=== PATIENT | male | born 1935 | race Caucasian/White ===

== ENCOUNTER 2023-11-28 11:05 | Inpatient (IN) | payer OTHER, SELFPAY ==
[2023-11-25 23:27] VITALS: BP 128/76
--- NOTE | 2023-11-25 23:53 | ED.GENMED ---
Addendum entered and electronically signed by Tarun Edwards DO 11/26/23 05:03:
30 minutes critical care time
Addendum entered and electronically signed by Tarun Edwards DO 11/26/23 03:02:
called to room urgently by RN
pt with increased HR, decreased sats, ? seizure (eyes rolled back)
to CT, ekg, abg
hospitalist on board
Original Note:
History of Present Illness
General
Chief Complaint: Fever
Source: patient and family
Time Seen by Provider: 11/25/23 23:45
History of Present Illness
History of Present Illness:
88-year-old male with past medical history of CVA, hypertension, hyperlipidemia presenting to the emergency department with family reporting that this evening patient developed a fever with a Tmax of 101 (was given Tylenol prior to arrival)
accompanied with some sinus congestion, cough, generalized weakness, left knee pain, small blood-tinged urine and generally feeling unwell. No known sick contacts, recent travel or recent antibiotics. Patient states that his biggest concern is the
leg weakness and feeling unsteady while trying to ambulate. Family states that the weakness is a little bit more pronounced and has been going on a little longer than the rest of the infectious symptoms. Patient is otherwise denying any abdominal
pain, nausea, vomiting, bowel changes, chest pain or shortness of breath or any other concerns presently.
Past History
Past History
ED Past Medical History: CVA, HTN and Hypercholesterolemia
ED Past Surgical History: Appendectomy and Other (Hernia repair)
Social History
Tobacco: Non-smoker
Alcohol: None
Drug: None
Personal:
Living: with family
Review of Systems
Review of Systems
All Other Systems: ROS reviewed and negative except as documented in HPI and ROS
Phy Exam
Physical Exam
Physical Exam:
GENERAL: Alert , in no apparent distress
EYE: clear conjunctiva b/l
HEAD: NCAT
ENT: o/p clr, mmm.
CARDIAC: Tachycardic rate and rhythm, irregularly irregular
LUNGS: Clear breath sounds bilaterally, no acute respiratory distress, no wheezes/rales/rhonchi
ABDOMEN: Soft, without focal tenderness, no r/g, no cvat
NEUROLOGICAL: Alert and oriented
SKIN: Warm and dry, skin intact.
MUSCULOSKELETAL: No edema, well perfused.
PSYCH: Normal and appropriate interaction.
Scores
Heart Failure Risk
Heart Failure Risk Score: Not Applicable
Heart Score for Chest Pain Patients
STEMI patient?: Not applicable
Withdrawal Assessment of Alcohol
Withdrawal Assessment Completed?: Not applicable
Course
Orders/Labs/Results
Orders:
Orders
11/25/23 23:52
Electrocardiogram (*1) Urgent
Reason for Study: Tachycardia
EKG- Treatment ONCE
Complete Blood Count/With Diff Urgent
Comprehensive Metabolic Panel Urgent
Lactic Acid Q4H
Comment: CANCEL 2nd LACTIC ACID IF 1st LACTIC ACID IS LESS THAN 2
Magnesium Urgent
TSH Urgent
Urinalysis Reflex To Culture Urgent
0.9% Sodium Chloride 1000 ml [Nss] 1,000 ml IV BOLUS
11/26/23 00:00
CR Chest Portable - 1 View Urgent
Reason For Exam: fever, cough
Reason Study Needs to be Portable: Patient Unstable
11/26/23 00:11
COVID-19 Antigen Urgent
Source: Nasal Swab
11/26/23 00:27
0.9% Sodium Chloride 1000 ml [Nss] 1,600 ml IV NOW STA
11/26/23 00:53
Blood Culture Urgent
TIFFANY Source: Blood/Venous
Specimen Description:
Piperacillin/Tazo 3.375 Gram [Zosyn] 3.375 gram in 50 ml IV NOW
Vancomycin [Vancocin] 2,000 mg 0.9% Sodium Chloride 500 ml [Nss] 500 ml IV NOW
11/26/23 01:23
Blood Culture Routine
TIFFANY Source: Blood/Venous
Specimen Description:
11/26/23 03:52
Lactic Acid Q4H
Comment: CANCEL 2nd LACTIC ACID IF 1st LACTIC ACID IS LESS THAN 2
Abnormal Lab Results
11/26/23
00:02
WBC 12.1 H 10^3/uL
(4.8-10.8)
RBC 4.01 L 10^6/uL
(4.70-6.10)
Hgb 12.6 L g/dL
(13.0-18.0)
Hct 37.5 L %
(39.0-52.0)
MCH 31.4 H pg
(27.0-31.0)
Abs Immat Gran (auto) 0.1 H 10^3/uL
(0-0.05)
Absolute Neuts (auto) 11.5 H 10^3/uL
(1.4-6.5)
Absolute Lymphs (auto) 0.3 L 10^3/uL
(1.2-3.4)
Immature Gran % 0.6 H %
(0-0.5)
Neutrophils % 95.2 H %
(42.2-75.2)
Lymphocytes % 2.6 L %
(20.5-51.1)
Monocytes % 1.2 L %
(1.7-9.3)
BUN 22 H mg/dl
(9-20)
Glucose 110 H mg/dl
(70-99)
Lactic Acid 3.0 H mmol/L
(0.7-2.0)
11/26/23 00:02
11/26/23 00:02
Vital Signs
Initial and Last Documented VS:
Initial Vital Signs
Temp Pulse Resp BP Pulse Ox
98.7 F 66 18 128/76 96
11/25/23 23:27 11/25/23 23:27 11/25/23 23:27 11/25/23 23:27 11/25/23 23:27
Last Documented Vital Signs
Temp Pulse Resp BP Pulse Ox
98.7 F 108 28 111/67 96
11/25/23 23:27 11/26/23 00:45 11/26/23 00:45 11/26/23 00:15 11/26/23 00:45
MDM/Problems Addressed
Differential Diagnosis Includes:
Viral syndrome, pneumonia, UTI, sepsis
MDM/Problems Addressed:
88-year-old male presenting emergency department for evaluation of a fever this evening combined with URI-like symptoms, hematuria and generalized weakness. Patient's exam reveals he is tachycardic with an irregular rhythm. No history of atrial
fibrillation. EKG being done. He is otherwise presently hemodynamically stable with normal blood pressure and he is afebrile. Will check labs, lactic acid, chest x-ray, urinalysis. Reassessment following. Given age and presenting symptoms I do
suspect patient will be admitted. Reassessment following
*Radiology
Radiology exam reviewed: preliminary read by ED provider (no consolidations/effusions)
*Pulse Oximetry
Patient hypoxic: no
*EKG
Interpreted by ED Provider?: Yes
Comparison EKG: no comparison EKG present
Heart Rate: 113
Rate: tachycardiac
Rhythm: sinus and PVC's
Isle: left axis deviation
*Commissioner Of Officials Interpretation
Rate: tachycardiac
Rhythm: sinus
*Critical Care Note
Total Time (30-74mins, 75-104mins- exclusive of procedures): Not Applicable
Patient Management
Discussion with other providers: Hospitalist
Escalation/DeEscalation of care consider admission/obs:
Patient CXR without acute infiltrate/effusions. WBC >12, lactic 3.0. Concern for sepsis. Additional 1600mL NSS ordered. broad spectrum abx coverage ordered. Unclear source for infection at this time. Plan for admit. Hospitalist aware and accepts for
continued evaluation and treatment.
ED Attending Note
-
Portions of this chart may have been created with voice recognition software.� Occasional wrong word or��sound alike� substitutions may have occurred due to the inherent limitations of voice recognition software.
Discharge Plan
Departure
Patient Disposition: Admit
Date of Disposition: 11/26/23
Time of Disposition: 01:01
Presentation/result/management discussed w/ accepting MD/DO: Hospitalist
Discharge Problem:
Sepsis
Prescriptions:
No Action
atorvastatin 20 mg Tablet
20 mg PO DAILY
tamsulosin 0.4 mg Capsule
0.4 mg PO HS
aspirin 81 mg Tablet
81 mg PO DAILY
metoprolol succinate 25 mg Tablet Extended Release 24 Hr
25 mg PO HS
empagliflozin 10 mg Tablet
10 mg PO DAILY
Co-Enzyme Q-10
100 mg PO DAILY
Referrals:
Robson Herbert MD [Family Provider] -
Interventions
Interventions:
*Risk Screen - Suicide Last Done: 11/26/23 00:06
*General Assessment Last Done: 11/26/23 00:06
*Neglect/Abuse Screening Last Done: 11/26/23 00:06
ED- Fall Risk Assessment Last Done: 11/26/23 00:18
*ED COVID-19 Vaccine History Last Done: 11/26/23 00:06
ED- Neurological Assessment Last Done: 11/26/23 00:18
ED-Skin Assessment Last Done: 11/26/23 00:18
Discharge Date and Time
Print Language: TAJIK
[2023-11-26] VITALS (25 sets, daily range): BP systolic 90–160; BP diastolic 44–80; BMI 27.1; BMI 26.9
[2023-11-26] MEDS: NSS 1000 IV ×3 (00:10→13:28)
[2023-11-26 00:14] LABS: % Basophils 0.3 % (0-2); % Eosinophils 0.1 % (0-6); % Immature Granulocytes 0.6 % (0-0.5); % Lymphocytes 2.6 % (20.5-51.1); % Monocytes 1.2 % (1.7-9.3); % Neutrophils 95.2 % (42.2-75.2); Absolute Immature Granulocytes 0.1 10^3/uL (0-0.05); Absolute Lymphocytes 0.3 10^3/uL (1.2-3.4); Absolute Monocytes 0.1 10^3/uL (0.1-0.6); Absolute Neutrophils 11.5 10^3/uL (1.4-6.5); Hematocrit 37.5 % (39.0-52.0); Hemoglobin 12.6 g/dL (13.0-18.0); Mean Corp Hgb Conc. 33.6 g/dL (33.0-37.0); Mean Corpuscular Hgb 31.4 pg (27.0-31.0); Mean Corpuscular Volume 93.5 fL (80.0-94.0); Mean Platelet Volume 10.2 fL (7.4-10.4); Nucleated Red Blood Cells % 0 % (-); Platelet Count 148 10^3/uL (130-400); Red Blood Cell Count 4.01 10^6/uL (4.70-6.10); Red Cell Dist. Width 13.8 % (11.5-14.5); White Blood Cell Count 12.1 10^3/uL (4.8-10.8)
[2023-11-26 00:26] LABS: ALT (SGPT) 12 U/L (0-50); AST (SGOT) 31 U/L (17-59); Albumin 4.3 g/dl (3.5-5.0); Alkaline Phosphatase 118 U/L (38-126); Blood Urea Nitrogen 22 mg/dl (9-20); Calcium 9.3 mg/dl (8.4-10.2); Carbon Dioxide 22 mmol/L (22-30); Chloride 103 mmol/L (98-107); Estimated Creatinine Clearance 42 ml/min; Glucose 110 mg/dl (70-99); Magnesium 1.7 mg/dl (1.6-2.3); Potassium 3.9 mmol/L (3.5-5.1); Sodium 138 mmol/L (135-145); Total Protein 7.4 g/dl (6.3-8.2); eGFR 52.84
[2023-11-26 00:32] LABS: COVID-19 Antigen Negative (Negative)
[2023-11-26] MEDS: NSS 1600 ML IV (00:42)
[2023-11-26 00:55] LABS: TSH 1.75 uIU/ml (0.47-4.68)
--- NOTE | 2023-11-26 01:17 | HPS.HSE ---
Addendum entered and electronically signed by Bud Jimenez MD 11/26/23 03:17:
Addendum:
RESIDENTIAL ENERGY AUDITOR witnessed abrupt onset of AMS :
- suddenly HR shot up to 130s become unresponsive, both eyes rolled up then b/l shakes, foaming fromthe mouth
- POx dropped to 70s
- HR 130s BP 150/80
- Rectal T 102
- Agonal breathing Not cyanotoc
- b/l symmetric tone in extremities
Plan
- switch to HFO2 in place of NRM
- stat ABG
- stat EKG
- stat HCT
- change level of care to ICU following ER evaluation for AMS
- cont IV ABx
Original Note:
Family Physician
-
Family Physician: Robson Herbert
Chief Complaint
-
Fever at home
History of Present Illness
HPI
88M No prior admission to HX DMT2, HLD, CVA, BPH BiB famiy for evalaution of fver up to 101 at home
Acute febrile illness
- some sinus congestion, cough
- generalized weakness and general debility
- small blood-tinged urine
- denied known sick contacts, recent travel or recent antibiotics
ROS
Denied abdominal pain, nausea, vomiting, bowel changes, chest pain or shortness of breath
Medical History
Past Medical History
Past Medical History: Reports CVA, HTN, Hypercholesterolemia and NIDDM
Past Surgical History: Reports Other
Social History
Tobacco: Non-smoker
Alcohol: None
Living: With Family
Family History
Family History: Not pertinent
Allergies / Home Medications
Allergies reflects when Allergies were last updated in [facility].
Home Medications with original date entered in [facility]
Allergy/Medication List:
Allergies
Allergy/AdvReac Type Severity Reaction Status Date / Time
lisinopril Allergy Swelling Verified 11/25/23 23:26
Home Medications
Co-Enzyme Q-10 100 mg PO DAILY 11/26/23
aspirin 81 mg tablet 81 mg PO DAILY 11/26/23
atorvastatin 20 mg tablet 20 mg PO DAILY 11/26/23
empagliflozin 10 mg tablet 10 mg PO DAILY 11/26/23
metoprolol succinate 25 mg tablet,extended release 24 hr 25 mg PO HS 11/26/23
tamsulosin 0.4 mg capsule 0.4 mg PO HS 11/26/23
Review of Systems
-
Constitutional: Reports Fever; Denies Chills
EENT: Reports No Symptoms
Respiratory: Reports No Symptoms
Cardiac: Reports No Symptoms
Abdomen/GI: Reports No Symptoms
: Reports No Symptoms
Musculoskeletal: Reports No Symptoms
Skin: Reports No Symptoms
Neurological: Reports Weakness
Endocrine: Reports No Symptoms
Hematologic/Lymphatic: Reports No Symptoms
Psych: Reports No Symptoms
Physical Exam
Vital Signs
Vital Signs
Temp Pulse Resp BP Pulse Ox
98.7 F 108 28 111/67 96
11/25/23 23:27 11/26/23 00:45 11/26/23 00:45 11/26/23 00:15 11/26/23 00:45
Physical Exam
General: No Apparent Distress, Comfortable and Conversant; No Respiratory Distress
HEENT: NormoCephalic, Anicteric and Moist mucous membranes
Respiratory: Clear; No Wheezes or Rales
Cardiac: S1/S2 and Regular Rhythm
GI: Soft, Non Tender, Non Distended and Normal Bowel Sounds
Genito-urinary: Deferred by me
Musculoskeletal: No Edema
Skin: Warm and Dry
Neuro: AO x 3
Psych: Calm
Laboratory Results
-
11/26/23 00:02
11/26/23 00:02
Laboratory Results
Lactic Acid 3.0 mmol/L (0.7-2.0) H 11/26/23 00:02
Total Bilirubin 1.0 mg/dl (0.2-1.3) 11/26/23 00:02
AST 31 U/L (17-59) 11/26/23 00:02
ALT 12 U/L (0-50) 11/26/23 00:02
Alkaline Phosphatase 118 U/L (38-126) 11/26/23 00:02
Data Reviewed
-
Medical Tests (Nuc Med, Echo, EKG etc): Report Reviewed by me
Lab Data: Labs Reviewed by me
Old Records: Reviewed
Impression/Plan
-
Reviewed VS: Tc 98.7, T 101(BUNDLE CLERK ) HR 108 BP110/67 RR28 POx96
Data
WCC 12s
Hgb 12.6
BUN 22
Cr 1.3
eGFR 52
nl LFTs
Pending LA
Pending UA
NEG Covid
BCx time 2 sent
CXR my view: no obvious PNA
ASSESSMENT & PLAN
SIRS clinical picture
Unclear origin for SIRS DDX: UTI , acute viral syndrome
Asso. tachycardia
- Pending LA, PCT
- BCx sent
- Empiric ABX; cont Vanco and Zosyn for now
DMT2
- cont Empagliflozin
- add ISS low
HLD
HX CVA
- cont. Atorvastatin
BPH
- cont Tamsulosin
DVT Px: LMWH
Code: Full code
Obs TLM
[2023-11-26] MEDS: ZOSYN 50 IV ×4 (01:22→20:11)
[2023-11-26 01:49] LABS: Urine Albumin 1+ (Neg - Trace); Urine Bilirubin Negative (Negative); Urine Character Clear (Clear); Urine Color Yellow; Urine Glucose 3+ (Negative); Urine Ketone Negative (Negative); Urine Leukocyte 2+ (Negative); Urine Nitrite Negative (Negative); Urine Occult Blood 4+ (Negative); Urine Specific Gravity 1.005 (<1.030); Urine Urobilinogen Negative (Neg - 1+)
[2023-11-26 01:51] LABS: NT-proBNP 2630 pg/ml
[2023-11-26] MEDS: VANCOCIN 540 MG IV (02:02)
[2023-11-26 02:04] LABS: Procalcitonin 18.01 ng/ml (0.0-0.25)
[2023-11-26 02:05] LABS: Urine Bacteria Few (Negative); Urine Red Blood Cell 0-2 /HPF (0-2); Urine White Cell 30-40 /HPF (0-5)
[2023-11-26] MEDS: OFIRMEV 100 IV (03:05)
--- NOTE | 2023-11-26 03:12 | EDRN ---
0305 Pts belongings being put together and placed on stretcher. Upon moving IV pump from pole to stretcher, pts HR increased to 135, pts eyes rolled to back of head, pt became rigorous and O2 sat dropped to 50s% and pt began seizing. Agonal
breathing noted post seizure, pt ortiz in color. Help called, nonrebreather placed on pt at 15L, respiratory called and doctor at bedside. Temp increased to 101.9 rectal, IV Ofirmev ordered and given per order by Dr. Jimenez. Pt placed on high flow per
resp, O2 sat 100% RR 22. Skin pink in color. +pulses. BP 129/64.
[2023-11-26 03:46] LABS: B.E. -10.5 mmol/L; PCO2 30 mmHg (35-48); PO2 275 mmHg (83-108)
[2023-11-26 03:48] LABS: O2 Therapy NRB
[2023-11-26 03:49] LABS: HCO3 14.8 mmol/L (21-28)
--- NOTE | 2023-11-26 03:55 | W.PN.UPDATE ---
Update Note
Progress Note Update
ADDENDUM:
COMMUNICATIONS INTERN witnessed abrupt onset of AMS : Gradually improved wakefulness
- suddenly HR shot up to 130s become unresponsive, both eyes rolled up then b/l shakes, foaming from the mouth
- POx dropped to 70s
- HR 130s BP 150/80
- Rectal T 102
- Agonal breathing Not cyanotic
- b/l symmetric tone in extremities
Laboratory Tests
11/26/23
03:38
pH 7.30 L
pCO2 30 L
pO2 275 H
HCO3 14.8 L*
11/26/23
01:16
Procalcitonin 18.01 H*
[facility] HCT : no acute bleeding
Imp:
AMS with gradual wakefulness : Episode of partial complex Sz associated with hi grade fever
Significant PCT suspected sepsis
ABG c/w primary metabolic acidosis with compensated Resp alkalosis ? due to Sz
No acute cerebral hemorrhage
Plan
- switch to HFO2 in palace of NRM
- cont IVF
- cont. Vanco and Zosyn
- change level of care to ICU to close monitoring following ER evaluation for AMS
- Neuro consult
- ICU consult
[2023-11-26 04:10] LABS: Lactic Acid 3.4 mmol/L (0.7-2.0)
--- NOTE | 2023-11-26 04:32 | W.PN.UPDATE ---
Update Note
Progress Note Update
CT Scan head: No hemorrhage, hydrocephalus, or herniation. Sequele of chronic microvascular disease with old right frontal lobe infarct and old cerebellar infarcts.
--- NOTE | 2023-11-26 05:30 | PTCARENOTE ---
Received patient from ED nurse. Pt. awake, alert, and oriented. Currently denies pain/discomfort. Febrile, temperature 100.2. Pt. heart rhythm sinus. Blood pressure normotensive. Currently on HFNC 60% 55 lpm. Lungs sound diminished. PO diet ordered.
Umbilical hernia noted. Per previous RN, pt. incontinent of urine. Condom catheter placed. Skin appears intact. Discussed plan of care. Vital signs stable at this time.
[2023-11-26 05:40] LABS: INR 1.34; PT 16.4 Sec (11.4-14.6)
[2023-11-26 05:41] LABS: APTT 32.5 Sec (23.4-35.0)
[2023-11-26 06:03] LABS: Blood Urea Nitrogen 20 mg/dl (9-20); Calcium 7.7 mg/dl (8.4-10.2); Carbon Dioxide 17 mmol/L (22-30); Chloride 107 mmol/L (98-107); Estimated Creatinine Clearance 51 ml/min; Glucose 106 mg/dl (70-99); Magnesium 1.6 mg/dl (1.6-2.3); Potassium 4.1 mmol/L (3.5-5.1); Sodium 134 mmol/L (135-145); eGFR > 60.00
[2023-11-26 06:08] LABS: Troponin I 0.994 ng/ml
[2023-11-26 08:24] LABS: Glucose - Point of Care 103 mg/dl (70-99)
[2023-11-26] MEDS: JARDIANCE 10 MG PO (08:25)
[2023-11-26] MEDS: ASPIR LOW (ENTERIC COATED) 81 MG PO (08:25)
[2023-11-26] MEDS: LIPITOR 20 MG PO (08:25)
--- NOTE | 2023-11-26 08:52 | CON.NEURO4 ---
Consultation - Neurology 4
-
CONSULTING PHYSICIAN: Dr. Wilkins
REFERRING PHYSICIAN: ICU
DICTATED BY: Claudette
DATE/TIME OF REQUEST: 11/26/23 at 8am
DATE/TIME OF CONSULTATION: 11/26/23 at 930
Reason for Consultation: seizure
History of Present Illness:
88 year-old male with a history of stroke, htn, and hld admitted yesterday evening with fever, sinus congestion, cough, generalized weakness, left knee pain and feeling unwell. He felt unsteady with trying to walk and felt his knees were weak.
Family stated that his weakness has worsened a bit over time and predates his infectious symptoms. No clear prior history of seizure. HCT showed: 'Old infarcts within the right frontoparietal lobe and right cerebellar hemisphere. No suspected acute
infarct appreciated.' At 355 AM an event was documented concerning for seizure activity described as 'witnessed abrupt onset of AMS, suddenly HR shot up to 130s, become unresponsive, both eyes rolled up then b/l shakes, foaming from the mouth, POx
dropped to 70s, HR 130s, BP 150/80, Rectal T 102, Agonal breathing Not cyanotic, b/l symmetric tone in extremities.' He was transferred to ICU after. He is on vancomycin and Zosyn. He has had no further events.
The patient does not recall the event. States that he had 'a stroke many years ago that was silent.' Confirms that he has never had a seizure. States that he was admitted at [facility] about 6 mos for stroke workup which was negative. Had some BLE
weakness with that event too.
Seizure risk factors: all negative beyond old stroke--no family history of seizure. No personal h/o [employer]ILTING [employer] infection, head trauma, febrile seizure; born full term, no complications or developmental delay
Past History
Past Medical History: CVA, HTN and Hypercholesterolemia
Past Surgical History: Appendectomy, Hernia repair
Social History
Tobacco: Non-smoker
Alcohol: None
Drugs: None
Lives with family
Allergies
lisinopril Allergy (Verified 11/25/23 23:26)
Swelling
Home Medications
�Medication �Instructions �Recorded
Co-Enzyme Q-10 100 mg PO DAILY 11/26/23
aspirin 81 mg tablet 81 mg PO DAILY 11/26/23
atorvastatin 20 mg tablet 20 mg PO DAILY 11/26/23
empagliflozin 10 mg tablet 10 mg PO DAILY 11/26/23
metoprolol succinate 25 mg 25 mg PO HS 11/26/23
tablet,extended release 24 hr
tamsulosin 0.4 mg capsule 0.4 mg PO HS 11/26/23
Review of Symptoms:
Patient denies any fever, headache, chest pain, shortness of breath, GI or symptoms.
�Per the HPI.�All systems are reviewed negative except above.
Vital Signs
Temp Pulse Resp BP Pulse Ox
98.0 F 65 16 119/57 99
11/26/23 08:05 11/26/23 06:15 11/26/23 06:15 11/26/23 06:13 11/26/23 07:56
Lab Results
11/26/23 00:02
11/26/23 05:19
PT 16.4 Sec (11.4-14.6) H 11/26/23 05:19
INR 1.34 11/26/23 05:19
APTT 32.5 Sec (23.4-35.0) 11/26/23 05:19
Sodium 134 mmol/L (135-145) L 11/26/23 05:19
Potassium 4.1 mmol/L (3.5-5.1) 11/26/23 05:19
BUN 20 mg/dl (9-20) 11/26/23 05:19
Glucose 106 mg/dl (70-99) H 11/26/23 05:19
Calcium 7.7 mg/dl (8.4-10.2) L D 11/26/23 05:19
Phosphorus Cancelled 11/26/23 05:10
Pxg-F-Kvzxyrtlfvh Pept 2630 pg/ml 11/26/23 01:13
COVID negative
Neurologic Examination:
The patient is awake, alert and oriented x 3. He is able to follow commands and answer questions appropriately. There is no aphasia or dysarthria. On cranial nerve assessment, pupils are 3 mm bilateral, round and reactive to light and
accommodation. Visual [place] are full. Extraocular movements are intact. Facial sensations are intact and bilaterally symmetrical, there is no facial asymmetry. Hearing is intact bilaterally to normal conversation volume. Tongue palate and uvula
are midline. Sternocleidomastoid strengths are full bilaterally. Motor strengths are 5/5 bilateral upper extremities on medical research [place] scale and at least 5-/5 in BLE with varying degrees of effort on repeated exams. There is no drift or
involuntary movement noted. Deep tendon reflexes are 1+ bilateral upper and lower extremities and Babinski is absent bilaterally. Sensations of touch, temperature are intact and bilaterally symmetrical. There was no extinction noted on double
simultaneous stimulation. Coordination is intact by finger to nose bilaterally.
Neuro Imaging:
HCT:
'1. No acute intracranial abnormalities appreciated.
2. Mild atrophy and small vessel ischemic change.
3. Old infarcts within the right frontoparietal lobe and right cerebellar hemisphere. No suspected acute infarct appreciated.'
Impression:
BROCK ZAVALA is a 88 year old M with mild BLE weakness, fever, and an episode of altered mental status concerning for possible seizure; differential includes provoked seizure due to infection vs. toxic encephalopathy.
Recommendations:
1. stat EEG--will only start an antiseizure medication if EEG shows epileptiform changes
2. MRI brain w/wo contrast when able
3. seizure precautions, neurochecks
4. continue treatment for infection
Discussed patient care with: Dr. Mandujano, nursing, patient
Critical care time 55 mins
--- NOTE | 2023-11-26 09:08 | CON.INTV ---
Consultation
Consultation Request
Date/Time Consultation Requested: 11/26/2023
Date/Time Consultation Performed: 11/26/2023
Requesting Provider: Dr. Jimenez
Performing Provider: Dr. Dominic Mandujano
Reason for Consultation: Abrupt change in mental status
Medical History
-
History of Present Illness:
88-year-old man with past medical history significant for CVA, hypertension, hyperlipidemia presented to the emergency room with fever up to 101 per his report, associated with sinus congestion, cough, generalized weakness and left knee pain,
patient feels sick on arrival. Denies any hemoptysis, purulent sputum production. No recent sick contacts or traveling.
He was more concerned about his lower extremity weakness and unsteady gait.
Denies any nausea vomiting or diarrhea.
While in the emergency room patient developed acute onset of change in mental status, tachycardic to the 130, unresponsive, both eyes rolled up then with some bilateral shaking and foaming in the mouth. Sats dropped to 70%. Patient was
hypertensive. Temperature at that time was 102 �F.
He was transferred to the critical care unit for observation.
This morning patient is back to baseline.
Denies any headache or blurry vision.
Denies any nausea or vomiting.
He is on low rate supplemental oxygen per
Past Medical History
Past Medical History: Other (See assessment and plan section)
Social History
Tobacco: Non-smoker
Alcohol: None
Drug: None
Personal:
Living: With Family
Family History
Family History: Reviewed & Not Pertinent
Allergies / Home Medications
Allergies
Allergy/AdvReac Type Severity Reaction Status Date / Time
lisinopril Allergy Swelling Verified 11/25/23 23:26
Home Medications
�Medication �Instructions �Recorded �Confirmed �Last Taken �Type
Co-Enzyme Q-10 100 mg PO DAILY 11/26/23 11/26/23 Unknown History
aspirin 81 mg tablet 81 mg PO DAILY 11/26/23 11/26/23 Unknown History
atorvastatin 20 mg tablet 20 mg PO DAILY 11/26/23 11/26/23 Unknown History
empagliflozin 10 mg tablet 10 mg PO DAILY 11/26/23 11/26/23 Unknown History
metoprolol succinate 25 mg 25 mg PO 11/26/23 11/26/23 Unknown History
tablet,extended release 24 hr
tamsulosin 0.4 mg capsule 0.4 mg PO 11/26/23 11/26/23 Unknown History
Review of Systems
-
History Source: Patient
All other systems: Negative unless noted
Vitals / Labs / Diagnostic Testing
Vital Signs
Temp Pulse Resp BP Pulse Ox
98.0 F 65 16 119/57 99
11/26/23 08:05 11/26/23 06:15 11/26/23 06:15 11/26/23 06:13 11/26/23 09:03
Lab Data
11/26/23 00:02
11/26/23 05:19
Laboratory Results
11/26/23 11/26/23 11/26/23
03:16 03:26 03:38
PT
INR
APTT
pH Cancelled Cancelled 7.30 L
pCO2 Cancelled Cancelled 30 L
pO2 Cancelled Cancelled 275 H
HCO3 Cancelled Cancelled 14.8 L*
O2 Delivery Level Cancelled Cancelled Nrb
11/26/23
05:19
PT 16.4 H
INR 1.34
APTT 32.5
pH
pCO2
pO2
HCO3
O2 Delivery Level
Diagnostic Testing:
Physical Exam
-
HEENT: Normocephalic
Cardiovascular: S1/S2
Respiratory: Clear
GI: Soft and Non Tender
Neurology: Awake and Alert
Skin: Warm
General: Comfortable
Assessment
-
Abrupt onset change in mental status-possible febrile seizure.
Head CT 11/26/2023: Reviewed, showed no acute intracranial abnormalities. Mild atrophy. Old infarcts in the right frontoparietal lobe and right cerebellar hemisphere.
Mild hypoxemic respiratory insufficiency on low rate supplemental oxygen
Chest x-ray 11/26/2023: Showed no acute pulmonary process
SRIS - Sepsis
Likely UTI
Neg Covid
Generalized weakness
Conditions present prior admission:
Prior CVA
Type 2 diabetes
Hyperlipidemia
BPH
-
Assessment and plan:
Clinically improved since yesterday
Mental status back to baseline
Possible febrile seizure.
CT of the head negative for
No neurological deficit on exam
-
Suspect above triggered by sepsis/fevers-possible UTI based on abnormal urinalysis.
Increased procalcitonin.
-
Urine culture and blood culture will send
Chest x-ray without pneumonia
Continue antibiotics
Monitor for fevers
Consider DC Graham
-
Hypoxemia: Perhaps some degree of aspiration pneumonitis post INTERNATIONAL TAX MANAGER event.
Wean off. Currently on high flow 40%. Pulse ox 97%.
Incentive spirometer
Lung exam relatively clear.
No significant phlegm production.
Doubt any acute pulmonary process
-
Metabolic acidosis: Likely due to normal saline resuscitation as well as increased lactic acid
Encourage oral intake
Trend lactic acid
Taper off IV fluids. Currently on normal saline 80 cc an hour.
Repeat tomorrow
-
Mildly increased troponin-trend.
EKG: Sinus tachycardia. Possible septal infarct age undetermined. ST-T wave abnormality consider lateral ischemia.
Chest pain-free.
-
Monitor blood sugars: Subcu insulin as needed.
Restart outpatient medications
-
DVT prophylaxis Lovenox subcu.
-
Physical therapy/Occupational Therapy.
-
Will transfer to telemetry.
If unable to wean off oxygen, pulmonary will continue to follow briefly.
--- NOTE | 2023-11-26 09:20 | PHA.VAN.IN ---
Assessment
- Assessment
Renal Function: Unknown baseline
Maximum Temperature: 101.9
Minimum Temperature: 98
Concomitant Antimicrobials: Piperacillin-tazobactam
AUC Dosing Plan
- Dosing Variables
Dosing Weight (kg): 90
Dosing CrCl (ml/min): 51
Vd coefficient (L/kg): 0.7
- Empiric Dosing
Initial / Loading Dose: Vanc 2000mg given 11/25 at 0134
Maintenance Regimen: Vanc 1500mg IV q24h
Estimated AUC (mcg*h/mL): 527
Estimated Peak (mcg*h/mL): 35.3
Estimated Trough (mcg/ml): 12.3
Estimated Half Life (H): 14.8
- Monitoring
No levels ordered at this time: Consider levels after 11/27 0600 dose
Pharmacokinetics Vancomycin I
- -
Patient Age: 88
Patient Sex: Male
Vancomycin Day #: 1
Indication: Bacteremia
Requesting Provider: Barbara
Height / Weight:
Height 6 ft
Actual Weight 89.9 kg
IBW in k.6
Adjusted BW in k.5
- Vital Signs / Lab Results
Temp Pulse Resp BP Pulse Ox
98.0 F 65 16 119/57 99
11/26/23 08:05 11/26/23 06:15 11/26/23 06:15 11/26/23 06:13 11/26/23 09:03
Lab Results - Hematology
11/26/23
00:02
WBC 12.1 H
Lab Results - Chemistry
11/26/23 11/26/23
00:02 05:19
BUN 22 H 20
Creatinine 1.3 1.1
Estimated Creat Clear 42 51
Albumin 4.3
11/26/23 11/26/23
00:02 03:50
Lactic Acid 3.0 H 3.4 H
Lab Results - Urine
11/26/23
01:39
Urine Nitrite (Reflex) Negative
Leukocyte Esterase Rfl 2+ A
Urine WBC (Reflex) 30-40 A
Ur Squamous Epith Cells 3-5
Urine Bacteria (Reflex) Few A
--- NOTE | 2023-11-26 09:30 | PTCARENOTE ---
Received pt resting in bed; pt AAOx3, POX 96% on high flow, pt denies SOB, NAD. Pt incontinent of urine, condom catheter detached. Pt washed, gown changed, new condom catheter placed, draining dark yellow urine with sediment. Remainder of assessment
as documented. D/w RT, pt weaned from high flow to 4L O2 NC POX 94%. Pt mildly SOTO, but POX remains appropriate at 92-94%.
[2023-11-26 10:20] LABS: Glycohemoglobin (HgbA1c) 5.8 % (4.0-5.6)
[2023-11-26 11:13] LABS: Lactic Acid 2.2 mmol/L (0.7-2.0)
--- NOTE | 2023-11-26 11:33 | PTCARENOTE ---
"Orders obtained to downgrade to tele. MRI requesting pt for MRI of the brain. Pt's ring and necklace removed for testing, given to pt's [id number] at the bedside. Prior to pt transport, pt febrile with a temp of 101.4. Covering hospitalist "Ava"notified, orders for PRN Tylenol received after pt transport for testing. Report called to Anna pt to be transferred to [facility] after MRI procedure. Belongings and pt family transported to pt's new floor by PCT. "
--- NOTE | 2023-11-26 12:19 | PTCARENOTE ---
Repeat troponin resulted with pt down in MRI; covering hospitalist notified of increase in lab value (0.994 > 3.420).
[2023-11-26 12:45] LABS: Lactic Acid 1.6 mmol/L (0.7-2.0)
--- NOTE | 2023-11-26 13:34 | EEG.RPT ---
Electroencephalogram Report
Recording
Date of EE11/26/23
Type of EEG: Routine
Length of EEG recordin mins
Done with Video Recording: Yes
Patient Status: Inpatient
Recording Conditions: Awake, Drowsy and Asleep
Hyperventilation Performed: No
Photic Stimulation Performed: Yes
Report
METHODS
A 21 channel digitized electroencephalogram was performed at [facility]. The 10/20 international system of electrode placement was used. In addition to EEG, the patient was monitored for EKG. The duration of the recording was 22 minutes.
BACKGROUND
During the awake state, with the eyes closed, the background was diffusely slow to an average of 5-6Hz. Occasional diffuse triphasic waves were noted.
PHOTIC STIMULATION
Photic stimulation using a step-stearns increase in photic frequency varying from 1-31 Hertz resulted in no driving responses but no appearance of abnormal activity.
CLINICAL EVENTS
None
INTERPRETATION AND CLINICAL CORRELATION
This EEG is abnormal due to diffuse slowing of the background to 5-6Hz frequencies with occasional diffuse triphasics, the latter of which can be seen in metabolic encephalopathies. The study is consistent with moderate diffuse cerebral
dysfunction, nonspecific in etiology. No seizures were noted.
--- NOTE | 2023-11-26 13:40 | W.PN.UPDATE ---
Update Note
Progress Note Update
Sepsis/Febrile episodes: f/u cultures; cont abx; Tylenol; possible UTI based on abnormal urinalysis
Seizures: EEG, MRI, CPK
Hypoxemia: Possibly secondary to aspiration pneumonitis; wean off O2
Troponin elevation�no chest pain; cardiology consulted as troponin 3.4, repeat EKG
[2023-11-26 13:48] LABS: Glucose - Point of Care 130 mg/dl (70-99)
--- NOTE | 2023-11-26 14:01 | CON.CAR ---
Consultation
Consultation Request
Date/Time Consultation Requested: 11/26/2023 12: 00
Date/Time Consultation Performed: 11/26/2023 14:00
Requesting Provider: Rhea
Performing Provider: Colton
Reason for Consultation: Elevated troponin
Medical History
-
Chief Complaint: Fever and weakness
History of Present Illness:
Jayme has a history of CVA, hypertension, hyperlipidemia, diabetes. He lives in [place] but has family locally. He is followed by Dr. Fernandes through [place] for cardiology. He was told that his heart muscle was weak in the past but it
'went back to normal ' on echo. He lives with his daughter. His daughter returned home and found him very weak. He had chills and a temperature of 101. He also has had sinus congestion and cough with blood-tinged urine. After arrival he was
noted to have a heart rate of 130 and became unresponsive and felt to have a seizure. Rectal temperature was 102. Initial troponin was 0.994 then went up to 3.4. He denies any chest pain or shortness of breath. He is not active at baseline but
is able to walk with a cane.
Past Medical History
Past Medical History: Other (See HPI. Reportedly he had a slow pulse in the past as well.)
Past Surgical History: Appendectomy and Other (Hernia repair)
Social History
Tobacco: Non-Smoker
Alcohol: None
Drug: None
Personal:
Living: With Family
Employment: Retired (He was in the vending business)
Family History
Family History: Reviewed & Not Pertinent
Allergies / Home Medications
Allergy/AdvReac Type Severity Reaction Status Date / Time
lisinopril Allergy Swelling Verified 11/25/23 23:26
�Medication �Instructions �Recorded �Confirmed �Type
Co-Enzyme Q-10 100 mg PO DAILY 11/26/23 11/26/23 History
aspirin 81 mg tablet 81 mg PO DAILY 11/26/23 11/26/23 History
atorvastatin 20 mg tablet 20 mg PO DAILY 11/26/23 11/26/23 History
empagliflozin 10 mg tablet 10 mg PO DAILY 11/26/23 11/26/23 History
metoprolol succinate 25 mg 25 mg PO HS 11/26/23 11/26/23 History
tablet,extended release 24 hr
tamsulosin 0.4 mg capsule 0.4 mg PO 11/26/23 11/26/23 History
Review of Systems
-
History Source: Patient and Family
All other systems: Negative unless noted
Constitutional: Fever, Fatigue and Chills
EENT: No Symptoms
Respiratory: No Symptoms
Cardiac: No Symptoms
Abdomen/GI: No Symptoms
: Bleeding (Blood-tinged urine at home)
Musculoskeletal: No Symptoms
Skin: No Symptoms
Neurological: Weakness
Endocrine: No Symptoms
Hematologic/Lymphatic: No Symptoms
Physical Exam
Vital Signs
Temp Pulse Resp BP Pulse Ox
99 F 80 18 160/76 94
11/26/23 12:37 11/26/23 12:37 11/26/23 12:37 11/26/23 12:37 11/26/23 12:37
General: Well developed, well nourished in NAD.
Neck: Supple, no JVD, HJR, carotids +2 B/L, no bruits bilaterally.
Heart: Non displaced PMI, RRR, 1/6 apical systolic murmur, No S3, S4, no rubs.
Lungs: Clear to auscultation bilaterally, no wheeze, rhonchi, rubs bilaterally,
normal expiratory phase.
Abdomen: Normal bowel sounds, soft, non-tender, non-distended.
Extremities: No clubbing, cyanosis or edema bilaterally.
Neuro: Grossly nonfocal, awake, alert and oriented x3.
Lab Results
11/26/23 00:02
11/26/23 05:19
Troponin I 3.420 ng/ml H* D 11/26/23 10:51
Nko-Q-Njhjellemwr Pept 2630 pg/ml 11/26/23 01:13
Impression / Plan
-
Primary CARE physician: Dr. Herbert
Primary client partner: Dr. Yoni Fernandes in [place]
Impression:
Sepsis/fever
Seizure disorder
Hypoxemia with possible aspiration pneumonia
Elevated troponin, suspect nonischemic myocardial injury, peak troponin 3.4 so far
History of CVA/MRI with subacute infarct in right occipital lobe and right temporal occipital junction
History of hypertension
History of hyperglycemia
History of diabetes
History of possible cardiomyopathy with possible normalization of ejection fraction
Plan:
He presents with febrile illness resulting in seizure and cardiology is consulted for elevated troponin
Suspect troponin is due to nonischemic myocardial injury in the setting of infection
There are nonspecific and lateral ST-T wave changes
We will continue to track troponin and check echocardiogram
Likely treat conservatively given advanced age
He is already on Toprol and aspirin as well as Lipitor
Will check lipids
MRI with CVA. He was on Plavix in the past which was discontinued reportedly by cardiology. Await neurology input.
Try to get records from Yoni Fernandes from [place] as well as Dr. Herbert on Monday 11/27
Discussed with patient and family at bedside
Data Reviewed
-
EKG: Tracing Personally Visualized and interpreted
Radiology: Report Reviewed by me
MRI: Report Reviewed by me
Medical Tests (Nuc Med, Echo etc): Report Reviewed by me
Labs: Labs Reviewed by me
Old Records: Reviewed
[2023-11-26 16:42] LABS: Glucose - Point of Care 100 mg/dl (70-99)
[2023-11-26] MEDS: LOVENOX 40 MG SC (17:44)
[2023-11-26 21:00] LABS: Glucose - Point of Care 157 mg/dl (70-99)
[2023-11-26] MEDS: PLAVIX 75 MG PO (21:51)
[2023-11-26] MEDS: FLOMAX 0.4 MG PO (21:51)
[2023-11-26] MEDS: TOPROL XL 25 MG PO (21:52)
[2023-11-27 03:00] VITALS: BP 124/68
[2023-11-27] MEDS: ZOSYN 50 IV ×4 (03:02→20:52)
[2023-11-27] MEDS: NSS 1000 IV (03:02)
[2023-11-27] MEDS: VANCOCIN 300 MG IV (06:10)
[2023-11-27] MEDS: VANCOCIN 300 ML IV (06:10)
[2023-11-27 07:22] LABS: Glucose - Point of Care 87 mg/dl (70-99)
[2023-11-27 07:52] VITALS: BP 116/60
[2023-11-27 08:50] LABS: Hematocrit 33.1 % (39.0-52.0); Hemoglobin 11.3 g/dL (13.0-18.0); Mean Corp Hgb Conc. 34.1 g/dL (33.0-37.0); Mean Corpuscular Hgb 31.3 pg (27.0-31.0); Mean Corpuscular Volume 91.7 fL (80.0-94.0); Red Blood Cell Count 3.61 10^6/uL (4.70-6.10); Red Cell Dist. Width 14.2 % (11.5-14.5); White Blood Cell Count 10.1 10^3/uL (4.8-10.8)
[2023-11-27 08:55] LABS: ALT (SGPT) 16 U/L (0-50); AST (SGOT) 77 U/L (17-59); Albumin 2.7 g/dl (3.5-5.0); Alkaline Phosphatase 75 U/L (38-126); Blood Urea Nitrogen 22 mg/dl (9-20); Calcium 7.9 mg/dl (8.4-10.2); Carbon Dioxide 19 mmol/L (22-30); Chloride 107 mmol/L (98-107); Creatine Phosphokinase 390 U/L (55-170); Estimated Creatinine Clearance 43 ml/min; Glucose 82 mg/dl (70-99); Potassium 3.5 mmol/L (3.5-5.1); Sodium 133 mmol/L (135-145); Total Bilirubin 0.7 mg/dl (0.2-1.3); Total Protein 5.4 g/dl (6.3-8.2); eGFR 52.84
[2023-11-27] MEDS: PLAVIX 75 MG PO (09:00)
[2023-11-27] MEDS: ASPIR LOW (ENTERIC COATED) 81 MG PO (09:00)
[2023-11-27] MEDS: LIPITOR 20 MG PO (09:01)
[2023-11-27] MEDS: JARDIANCE 10 MG PO (09:01)
--- NOTE | 2023-11-27 09:59 | W.PN.CARDCBS ---
Today's Communication / Plan
-
Stable cardiology status
Check further troponins
Check echo
Check lipids
Continue Toprol and aspirin
Await neurology input regarding new CVA
Impression / Plan
-
Primary CARE physician: Dr. Herbert
Primary case management social worker: Dr. Yoni Fernandes in [place]
Impression:
Sepsis/fever
Seizure disorder
Hypoxemia with possible aspiration pneumonia
Elevated troponin, suspect nonischemic myocardial injury, peak troponin 3.4 so far
History of CVA/MRI with subacute infarct in right occipital lobe and right temporal occipital junction
History of hypertension
History of hyperglycemia
History of diabetes
History of possible cardiomyopathy with possible normalization of ejection fraction
Plan:
Elevated troponin felt to be non ischemic myocardial injury due to sepsis
There were some lateral ST-T wave changes noted on ECG
Will continue to track troponin and check repeat ECG
He is already on Toprol and Lipitor as well as aspirin.
Will check lipids with goal of LDL less than 70
check echocardiogram
Likely treat conservatively given advanced age
MRI with CVA. He was on Plavix in the past which was discontinued reportedly by cardiology. Await neurology input.
Try to get records from Yoni Fernandes from [place] as well as Dr. Herbert on Monday 11/27
Progress Note - Professional Services Manager
Subjective
Date of Service: November 27, 2023
No chest pain or shortness of breath
Objective
Labs:
11/27/23 07:49
11/27/23 07:49
Labs
Hgb 11.3 g/dL (13.0-18.0) L 11/27/23 07:49
Hct 33.1 % (39.0-52.0) L 11/27/23 07:49
Plt Count 148 10^3/uL (130-400) 11/26/23 00:02
PT 16.4 Sec (11.4-14.6) H 11/26/23 05:19
INR 1.34 11/26/23 05:19
APTT 32.5 Sec (23.4-35.0) 11/26/23 05:19
Sodium 133 mmol/L (135-145) L 11/27/23 07:49
Potassium 3.5 mmol/L (3.5-5.1) 11/27/23 07:49
BUN 22 mg/dl (9-20) H 11/27/23 07:49
Creatinine 1.3 mg/dL (0.7-1.3) 11/27/23 07:49
Glucose 82 mg/dl (70-99) 11/27/23 07:49
Troponins
11/26/23 11/26/23 11/27/23
05:19 10:51 08:05
Troponin I 0.994 H* 3.420 H* D 5.500 H*
Vital Signs and I&O:
Vital Signs
Temp Pulse Resp BP Pulse Ox
97.7 F 84 18 116/60 97
11/27/23 07:52 11/27/23 07:52 11/27/23 07:52 11/27/23 07:52 11/27/23 07:52
Vital Signs
Temp Pulse Resp BP Pulse Ox
97.7 F 84 18 116/60 97
11/27/23 07:52 11/27/23 07:52 11/27/23 07:52 11/27/23 07:52 11/27/23 07:52
Intake & Output
11/25/23 11/26/23 11/27/23 11/28/23
06:59 06:59 06:59 06:59
Intake Total 80 / 160 2930 / 2930
Output Total 1800 / 1800
Balance 80 / 160 1130 / 1130
Physical Exam
Physical Exam
General: Well developed, well nourished in NAD.
Neck: Supple, no JVD, HJR, carotids +2 B/L, no bruits bilaterally.
Heart: Non displaced PMI, RRR, 1�2/6 apical systolic murmur, No S3, S4, no rubs.
Lungs: Clear to auscultation bilaterally, no wheeze, rhonchi, rubs bilaterally,
normal expiratory phase.
Extremities: No clubbing, cyanosis or edema bilaterally.
Neuro: Grossly nonfocal, awake, alert and oriented x3.
--- NOTE | 2023-11-27 10:22 | PHA.VAN.FU ---
Vancomycin Assessment / Plan
- Assessment
Renal Function: Stable
WBC's are: Trending Down
In the past 24 hrs, patient has been: Febrile (Tmax = 101.4)
Concomitant Antimicrobials: Piperacillin-tazobactam
- Dosing Plan
Continue: Vanc 1500mg IV q24h
- Monitoring Plan
No level(s) ordered at this time: Consider levels after 11/28 0600 dose
- Follow Up
Pharmacy will continue to follow.
Vancomycin Follow UP
- -
Patient Age: 88
Patient Sex: Male
Vancomycin Day #: 2
Indication: Bacteremia
Requesting Provider: Barbara
Height / Weight:
Height 6 ft
Actual Weight 89.9 kg
IBW in k.6
Adjusted BW in k.5
- Vital Signs / Lab Results
Temp Pulse Resp BP Pulse Ox
97.7 F 84 18 116/60 97
11/27/23 07:52 11/27/23 07:52 11/27/23 07:52 11/27/23 07:52 11/27/23 07:52
Lab Results - Hematology
11/26/23 11/27/23
00:02 07:49
WBC 12.1 H 10.1
Lab Results - Chemistry
11/26/23 11/26/23 11/27/23
00:02 05:19 07:49
BUN 22 H 20 22 H
Creatinine 1.3 1.1 1.3
Estimated Creat Clear 42 51 43
Albumin 4.3 2.7 L D
11/26/23 11/26/23 11/26/23
00:02 03:50 05:04
Lactic Acid 3.0 H 3.4 H Cancelled
11/26/23 11/26/23 11/26/23
10:51 12:29 17:04
Lactic Acid 2.2 H 1.6 Cancelled
Microbiology Results
11/26/23 01:13 Blood Culture - Preliminary
Blood/Venous Positive culture in progress
Gram Stain - Preliminary
[2023-11-27 11:14] LABS: Glucose - Point of Care 91 mg/dl (70-99)
[2023-11-27 11:21] VITALS: BP 112/63
--- NOTE | 2023-11-27 13:49 | W.PN.PUL3 ---
Today's Communication / Plan
-
Wean off oxygen
Incentive spirometry
Aspiration precautions
Increase activity as able
Further evaluation per primary team and Neurology
Sign off
Assessment
-
Mild hypoxemic respiratory insufficiency on low rate supplemental oxygen
Chest x-ray 11/26/2023: Showed no acute pulmonary process
Suspect due to aspiration pneumonitis.
Abrupt onset change in mental status-possible febrile seizure versus new CVA.
Head CT 11/26/2023: Reviewed, showed no acute intracranial abnormalities. Mild atrophy. Old infarcts in the right frontoparietal lobe and right cerebellar hemisphere.
MRI noted-There are 5 punctate 1-2 mm areas of abnormal increased signal on diffusion imaging in the cortex and subcortical white matter of the right occipital lobe and right temporal occipital junction consistent with areas of subacute ischemic
change suggested involving the disease in the right posterior cerebral artery distribution Other chronic changes noted
SRIS - Sepsis
Likely UTI
Neg Covid
Generalized weakness
Conditions present prior admission:
Prior CVA
Type 2 diabetes
Hyperlipidemia
BPH
-
Assessment and plan:
Pulmonary following for hypoxemia
From high flow now to 2 L.
Wean off as able
Lung exam relatively clear
I suspect some degree of aspiration pneumonitis.
No further evaluation from the pulmonary perspective.
Encourage incentive spirometry
Aspiration precautions.
-
Mental status improved
Mental status back to baseline
Possible febrile seizure.
MRI noted as above.
Neurology following and evaluating for possible new areas of CVA.
-
Suspect above triggered by sepsis/fevers-possible UTI based on abnormal urinalysis.
Increased procalcitonin.
-
Urine culture and blood culture will send
Chest x-ray without pneumonia
Continue antibiotics per primary team.
-
Metabolic acidosis: Likely due to normal saline resuscitation as well as increased lactic acid
Improved
-
Mildly increased troponin-trend.
EKG: Sinus tachycardia. Possible septal infarct age undetermined. ST-T wave abnormality consider lateral ischemia.
Chest pain-free.
Cardiology following the patient. Conservative management.
-
Monitor blood sugars: Subcu insulin as needed.
Restart outpatient medications
-
DVT prophylaxis Lovenox subcu.
-
Physical therapy/Occupational Therapy.
-
No additional recommendation from the pulmonary perspective.
Sign off
Subjective Data
-
Date of Service:
Date of Service: November 27, 2023
Chief Complaint: Pulmonary Follow Up (Hypoxemic respiratory sufficiency-possible aspiration pneumonitis.)
Subjective:
Denies any pulmonary complaints
On low rate supplemental oxygen
Review of Systems
General: Fever (n)
Cardiopulmonary: Dyspnea (none at rest)
GI: Abdominal Pain (n) and Nausea (n)
Objective Data
Data Reviewed
Vital Signs / I&O / Oxygen:
Vital Signs
Temp Pulse Resp BP Pulse Ox
98.2 F 78 17 112/63 95
11/27/23 11:21 11/27/23 11:21 11/27/23 11:21 11/27/23 11:21 11/27/23 11:21
Intake and Output
11/26/23 11/27/23 11/28/23
06:59 06:59 06:59
Intake Total 80 / 160 2930 / 2930
Output Total 1800 / 1800
Balance 80 / 160 1130 / 1130
SaO2 95
Nasal Cannula flow liters per 2
minute
Physical Exam
General: Respiratory Distress (n) and Comfortable
HEENT: Normocephalic
Cardiovascular: S1-S2
Respiratory: Clear and Non-Labored Respirations
GI: Soft and Non Distended
Neurology: Awake and Alert
Labs/Micro/Reports
Lab Data
11/27/23 07:49
11/27/23 07:49
Microbiology
11/26/23 01:39 Urine Urine Culture - Final
11/26/23 01:13 Blood/Venous Blood Culture - Preliminary
Proteus species
11/26/23 01:13 Blood/Venous Gram Stain - Preliminary
--- NOTE | 2023-11-27 14:16 | CM ---
manager of internal reviewed patient's chart and met with patient and patient was admitted under observation, GARCIA letter given and signed by patient at 1pm, 11/27/23. Patient lives with his daughter, Ashley Delacruz in a 2 story home, patient is independent with
adl's and uses a cane with ambulation. Per patient he was recently at [facility] and from there was sent to [facility].
Pharmacy: [facility].
PCP: Dr. Herbert
Plan; Home with daughter when stable, per patient they are moving into a condo in [place] soon.
--- NOTE | 2023-11-27 14:44 | W.PN.HOSP.TC ---
Today's Communication/Plan
-
repeat blood cultures
cont abx
echo
wean o2
fu cards, neuro
Assessment / Plan
Assessment / Plan
Physical Exam
General: No Apparent Distress, Comfortable and Conversant; No Respiratory Distress
HEENT: NormoCephalic, Anicteric and Moist mucous membranes
Respiratory: Clear; No Wheezes or Rales
Cardiac: S1/S2 and Regular Rhythm
GI: Soft, Non Tender, Non Distended and Normal Bowel Sounds
Genito-urinary: Deferred by me
Musculoskeletal: No Edema
Skin: Warm and Dry
Neuro: AO x 3
Psych: Calm
#Severe Sepsis
-Bacteremic
-Cont iv abx
-repeat blood cultures
-ECHO
-ID consult once cultures start finalizing
#Mild hypoxemic respiratory insufficiency on low rate supplemental oxygen
-possible pneumonitis
-duonebs
-incentive carine
-wean o2
#CVA
-f/u neuro for recs
-DAPT as per neurology
#Elevated Troponin
-most likely Non ischemic myocardial injury
-no chest pain
-f/u echo
-on Toprol, statin
-ASA, PLavix
-ECG
-F/u Lipids
#DMT2
- cont Empagliflozin
- add ISS low
HLD
HX CVA
- cont. Atorvastatin
BPH
- cont Tamsulosin
DVT Px: LMWH
Code: Full code
Obs TLM
Anticipated Discharge: > 48 hours
Subjective/Interval History
-
Date of Service: November 27, 2023
no acute events; no further seizures
Objective Data
-
Labs:
Laboratory Results
11/27/23
07:49
WBC 10.1
Hgb 11.3 L
Hct 33.1 L
Plt Count
Sodium 133 L
Potassium 3.5
Chloride 107
Carbon Dioxide 19 L
BUN 22 H
Creatinine 1.3
Glucose 82
Calcium 7.9 L
Total Bilirubin 0.7
AST 77 H
ALT 16
Alkaline Phosphatase 75
Vital Signs:
Vital Signs
Temp Pulse Resp BP Pulse Ox
98.2 F 78 17 112/63 95
11/27/23 11:21 11/27/23 11:21 11/27/23 11:21 11/27/23 11:21 11/27/23 11:21
I&O
11/26/23 11/27/23 11/28/23
06:59 06:59 06:59
Intake Total 80 / 160 2930 / 2930
Output Total 1800 / 1800
Balance 80 / 160 1130 / 1130
Review of Systems
-
History Source: Patient
All other systems: Not reviewed unless documented
Data Reviewed
-
CT Scan: Image personally visualized and interpreted
MRI: Image personally visualized and interpreted and Report Reviewed by me
Labs: Labs Reviewed by me
--- NOTE | 2023-11-27 14:53 | W.PN.NEURO.1 ---
Today's Communication / Plan
-
echo
mra head
cus
dapt
Neuro Assessment/Plan
Assessment
BROCK ZAVALA is a 88 year old M with mild BLE weakness, fever, and an episode of altered mental status concerning for possible seizure; differential includes provoked seizure due to infection and stroke confirmed on MRI brain (see below).
MRI brain showed:
IMPRESSION:
1).There are 5 punctate 1-2 mm areas of abnormal increased signal on diffusion imaging in the cortex and subcortical white matter of the right occipital lobe and right temporal occipital junction consistent with areas of subacute ischemic change
suggested involving the disease in the right posterior cerebral artery distribution
2). There is a 6 cm area of volume loss and encephalomalacia in the posterior superolateral aspect of the right frontal lobe consistent with old infarct.
3). There is moderate cortical and cerebellar atrophy with moderate nonspecific white matter changes as described above.
EEG: diffuse slowing with triphasic waves; no clear seizure or epileptiform activity
Plan
Recommendations:
-reviewed MRI brain and EEG results with patient
-MRA head, CUS
-BP goal is normotension.
-continue dapt x 21 days, then d/c Plavix and continue ASA 81mg daily
- Hemoglobin A1C mildly elevated at 5.8. Goal is normoglycemia.
- On atrovastatin 20mg daily. Check LDL. Goal LDL after stroke is <70.
- Check an echocardiogram.
-PT/OT/ST evaluations
- DVT prophylaxis
-continue neurochecks
- seizure precautions, neurochecks
-continue treatment for infection
-no antiseizure medication at this time; seizure was likely provoked; no epileptiform abnormalities seen on EEG
Subjective/Objective
Subjective Data
Date of Service: November
remains seizure free
Objective Data
Vital Signs
Temp Pulse Resp BP Pulse Ox
98.2 F 78 17 112/63 95
11/27/23 11:21 11/27/23 11:21 11/27/23 11:21 11/27/23 11:21 11/27/23 11:21
Lab Results
11/27/23 07:49
11/27/23 07:49
PT 16.4 Sec (11.4-14.6) H 11/26/23 05:19
INR 1.34 11/26/23 05:19
APTT 32.5 Sec (23.4-35.0) 11/26/23 05:19
Sodium 133 mmol/L (135-145) L 11/27/23 07:49
Potassium 3.5 mmol/L (3.5-5.1) 11/27/23 07:49
BUN 22 mg/dl (9-20) H 11/27/23 07:49
Glucose 82 mg/dl (70-99) 11/27/23 07:49
Calcium 7.9 mg/dl (8.4-10.2) L 11/27/23 07:49
Phosphorus Cancelled 11/26/23 05:10
Ofm-U-Mebxdrytufq Pept 2630 pg/ml 11/26/23 01:13
Patient Allergies
lisinopril Allergy (Verified 11/25/23 23:26)
Swelling
Physical Exam
-
The patient is awake, alert and oriented x 2--unable to state location today. He is able to follow commands and answer questions appropriately. There is no aphasia or dysarthria. On cranial nerve assessment, pupils are 3 mm bilateral, round and
reactive to light and accommodation. Visual hamilton are full. Extraocular movements are intact. Facial sensations are intact and bilaterally symmetrical, there is no facial asymmetry. Hearing is intact bilaterally to normal conversation volume.
Tongue palate and uvula are midline. Sternocleidomastoid strengths are full bilaterally. Motor strengths are 5/5 bilateral upper extremities on medical research [place] scale and at least 5-/5 in BLE with varying degrees of effort on repeated exams.
There is no drift or involuntary movement noted. Deep tendon reflexes are 1+ bilateral upper and lower extremities and Babinski is absent bilaterally. Sensations of touch, temperature are intact and bilaterally symmetrical. There was no extinction
noted on double simultaneous stimulation. Coordination is intact by finger to nose bilaterally.
[2023-11-27 15:19] VITALS: BP 130/64
[2023-11-27 16:14] LABS: Glucose - Point of Care 104 mg/dl (70-99)
[2023-11-27] MEDS: LOVENOX 40 MG SC (17:49)
--- NOTE | 2023-11-27 19:45 | PTCARENOTE ---
Pt incontinent of large amount of stool. Pt changed and repositioned. HR went up to 150-160 then came down to 110-120s. Pt mildly sob. Pt denies cp. Pt HR appears irregular and continues to be 110-120s. Tamara AUGUSTIN notified. stat labs and
EKG ordered.
EKG obtained. HR:90s. labs drawn. Pt asymptomatic.
[2023-11-27 19:54] VITALS: BP 139/78
[2023-11-27 20:20] LABS: Magnesium 1.8 mg/dl (1.6-2.3)
[2023-11-27 20:22] LABS: Blood Urea Nitrogen 23 mg/dl (9-20); Calcium 7.9 mg/dl (8.4-10.2); Carbon Dioxide 17 mmol/L (22-30); Chloride 106 mmol/L (98-107); Estimated Creatinine Clearance 47 ml/min; Glucose 109 mg/dl (70-99); Potassium 3.8 mmol/L (3.5-5.1); Sodium 132 mmol/L (135-145); eGFR 58.17
[2023-11-27] MEDS: FLOMAX 0.4 MG PO (20:52)
[2023-11-27] MEDS: TOPROL XL 25 MG PO (20:52)
[2023-11-27 21:25] LABS: Glucose - Point of Care 111 mg/dl (70-99)
[2023-11-27 23:00] VITALS: BP 119/78
[2023-11-28] VITALS (8 sets, daily range): BP systolic 133–157; BP diastolic 62–89; PULSE 97–100; O2SAT 95
[2023-11-28] MEDS: ZOSYN 50 IV (03:21)
[2023-11-28] MEDS: VANCOCIN 300 MG IV (06:18)
[2023-11-28] MEDS: VANCOCIN 300 ML IV (06:18)
--- NOTE | 2023-11-28 08:35 | CARDSERVLU ---
Echocardiogram with Lumason completed after protocol screening completed. Allergies verified.
Patent IV site: _Rt wrist___
IV site flushed with 0.9% NaCl pre and post administration.
Diluted bolus method utilized to enhance visualization of ventricular faulkner.
Total volume given: _2.0___ mL
Patient tolerated all procedures well without complications.
--- NOTE | 2023-11-28 08:41 | W.PN.NEURO.1 ---
Documented by User: Rashida Brennan NP 11/28/23 14:57
Today's Communication / Plan
-
.
Neuro Assessment/Plan
Assessment
BROCK ZAVALA is a 88 year old M with mild BLE weakness, fever, and an episode of altered mental status concerning for possible seizure; differential includes provoked seizure due to infection, TME, and tiny subacute stroke confirmed on MRI brain
(see below).
MRI brain showed:
IMPRESSION:
1).There are 5 punctate 1-2 mm areas of abnormal increased signal on diffusion imaging in the cortex and subcortical white matter of the right occipital lobe and right temporal occipital junction consistent with areas of subacute ischemic change
suggested involving the disease in the right posterior cerebral artery distribution.
2). There is a 6 cm area of volume loss and encephalomalacia in the posterior superolateral aspect of the right frontal lobe consistent with old infarct.
3). There is moderate cortical and cerebellar atrophy with moderate nonspecific white matter changes as described above.
-EEG: diffuse slowing with triphasic waves; no clear seizure or epileptiform activity.
-Carotid ultrasound 11/28/23: Mild amount of mixed calcified noncalcified plaque within BOTH carotid bulbs and proximal internal carotid arteries causing less than 50% luminal narrowing bilaterally. Antegrade flow within both vertebral arteries.
-TTE 11/28/23: ER 30-35%. LA volume mildly abnormal.
Plan
-Continue DAPT x 21 days. After 21 days, discontinue aspirin and continue Plavix 75mg daily only, per Cardiology recommendation due to NSTEMI.
-BP goal is normotension.
-Monitor on telemetry. Patient may benefit from outpatient cardiac monitoring.
-LDL goal <70. LDL is 47. Okay to continue home atorvastatin 20mg daily as LDL is at goal.
-Hemoglobin A1C mildly elevated at 5.8. Goal is normoglycemia.
-PT/OT/ST evaluations.
-Seizure precautions, neuro checks, NIHSS per unit guidelines.
-Provide patient with a stroke education packet.
-Continue treatment for infection.
-No antiseizure medication at this time; seizure was likely provoked; no epileptiform abnormalities seen on EEG.
-DVT prophylaxis.
-Patient should follow-up with Neurology as an outpatient, may see the DIRECTOR MUSIC or one of the physicians.
Subjective/Objective
Subjective Data
Date of Service: November 28, 2023
No acute events overnight. Patient reports feeling improved today. He denies any headache, dizziness, speech/swallow difficulty, numbness, focal weakness, nausea, chest pain, palpitations, and shortness of breath.
Objective Data
Vital Signs
Temp Pulse Resp BP Pulse Ox
99.3 F 102 22 155/85 91
11/28/23 03:17 11/28/23 03:17 11/28/23 03:17 11/28/23 03:17 11/28/23 03:17
PT 16.4 Sec (11.4-14.6) H 11/26/23 05:19
INR 1.34 11/26/23 05:19
APTT 32.5 Sec (23.4-35.0) 11/26/23 05:19
Sodium 132 mmol/L (135-145) L 11/27/23 20:01
Potassium 3.8 mmol/L (3.5-5.1) 11/27/23 20:01
BUN 23 mg/dl (9-20) H 11/27/23 20:01
Glucose 109 mg/dl (70-99) H 11/27/23 20:01
Calcium 7.9 mg/dl (8.4-10.2) L 11/27/23 20:01
Phosphorus Cancelled 11/26/23 05:10
Mnt-S-Kmypnoajiui Pept 2630 pg/ml 11/26/23 01:13
Patient Allergies
lisinopril Allergy (Verified 11/25/23 23:26)
Swelling
LDL Level: <70, continue statin
Review of Systems
-
History Source: Patient
EENT: Negative Blurry Vision, Decreased Vision or Swallowing Difficulty
Respiratory: Negative Cough or Trouble Breathing
Cardiac: Negative Chest Pain or Palpitations
Abdomen/GI: Negative Nausea
Neuro: Negative Dizzy, Headache, Weakness, Numbness, Ataxia, Tremors or Speech Problem
Physical Exam
-
General: Well Developed, Well Nourished, No Apparent Distress and Wearing Oxygen
Eyes: No Ptosis and PERRLA
HEENT: Normocephalic and Atraumatic
Neck: Full Range of Motion
Respiratory: No Dyspnea
GI: Non-distended
Extremities: No Clubbing, No Cyanosis and No Edema
Psych: Unremarkable
Extended Neurological Exam
Mood & Affect: Mood Unremarkable and Affect Unremarkable
Attention Span & Concentration: Awake, Alert and Interactive
Memory: Unremarkable (AAOx3) and Able to Recall
Tremor: Hand Tremor Absent and Head Tremor Absent
Involuntary Movement: None
Speech: Quality Unremarkable, Quantity Unremarkable and Rate of Production Unremarkable
Cranial Nerve II: Left Eye: Pupillary Reactivity Unremarkable, Pupillary Size Unremarkable and Visual Harrington Intact
Cranial Nerve II: Right Eye: Pupillary Reactivity Unremarkable, Pupillary Size Unremarkable and Visual Harrington Intact
Cranial Nerves III, IV, : Extraocular Movement: Extraocular Movement Full in all Directions
Cranial Nerve V: Facial Sensation: Intact to Light Touch
Cranial Nerve VII: Facial Symmetry: Normal Facial Symmetry
Cranial Nerve VIII: Hearing: Unremarkable Hearing to Normal Conversational Volume
Cranial Nerves IX, X: Palate Movement: Palate Elevation Symmetric
Cranial Nerve XI: Shoulder Shrug: Unremarkable
Cranial Nerve XII: Tongue Protusion: Midline
Muscle Strength, Overall: Full Throughout
Muscle Bulk & Tone: Bulk Unremarkable and Tone Unremarkable
Pronator Drift: No Drift in Upper Extremities and No Drift in Lower Extremities
Touch Sensation: Double Simultaneous Stimulation Unremarkable
Coordination: Fjgsxx-wzts-oljjky Testing Unremarkable
Babinski Sign: Absent Bilaterally
Modified Afsaneh Score (MRS)
-
Modified [place]fs[place] Scale (mRS): No symptoms
Score: 0
Data Reviewed
-
CT Head: Report Reviewed and Image Reviewed
MRI Head: Report Reviewed and Image Reviewed
MRA Head: Report Reviewed and Image Reviewed
Labs: Report Reviewed
Lipid Profile: Report Reviewed
HgbA1C: Report Reviewed
Reviewed with: Physician and Patient
Medications
-
Medications:
Generic Name Dose Route Start Last Admin
Trade Name Freq PRN Reason Stop Dose Admin
Acetaminophen 650 mg 11/26/23 11:28
Acetaminophen 325 Mg Tablet PO 12/24/23 11:27
Q6HPRN PRN
mild pain/ fever>100.5F
Aspirin 81 mg 11/26/23 08:00 11/28/23 10:38
Aspirin 81 Mg (Enteric Coated) Tablet PO 12/24/23 07:59 81 mg
DAILY BEREKET Administration
Atorvastatin Calcium 20 mg 11/26/23 08:00 11/28/23 10:38
Atorvastatin (Lipitor) 20 Mg Tablet PO 12/24/23 07:59 20 mg
DAILY BEREKET Administration
Ceftriaxone Sodium 1,000 mg 11/28/23 12:00
Ceftriaxone 1000 Mg / 10 Ml Vial IV
Q24H BEREKET
Clopidogrel Bisulfate 75 mg 11/26/23 21:05 11/28/23 10:38
Clopidogrel 75 Mg Tablet PO 12/24/23 21:04 75 mg
DAILY BEREKET Administration
Dextrose 12.5 grams 11/26/23 05:04
Dextrose 50% (0.5 Grams/Ml) 50 Ml Syringe IV 12/24/23 05:03
[id number] PRN
hypoglycemia
Protocol
Empagliflozin 10 mg 11/26/23 08:00 11/28/23 10:37
Empagliflozin (Jardiance) 10 Mg Tablet PO 12/24/23 07:59 10 mg
DAILY BEREKET Administration
Enoxaparin Sodium 40 mg 11/26/23 18:00 11/27/23 17:49
Enoxaparin Sodium 40 Mg/0.4 Ml Syringe SC 12/24/23 17:59 40 mg
QPM BEREKET Administration
Glucagon 1 mg 11/26/23 05:04
Glucagon 1 Mg Vial IM 12/24/23 05:03
PRN PRN
hypoglycemia
Protocol
Vancomycin HCl 1,500 mg/ 300 mls @ 200 mls/hr 11/27/23 06:00 11/28/23 06:18
Sodium Chloride 20 ml/ Sodium IV 300 mls
Chloride Q24H BEREKET Administration
Insulin Aspart 0 units 11/26/23 07:30 11/28/23 10:38
Insulin Aspart Low Resistance 300 Units/3 Ml Pen.Injctr SC 12/24/23 07:29 Not Given
AC BEREKET
Protocol
Metoprolol Succinate 25 mg 11/26/23 22:00 11/27/23 20:52
Metoprolol 25 Mg Extended Release Tablet PO 12/24/23 21:59 25 mg
HS BEREKET Administration
Sodium Chloride 0 flush 11/26/23 06:00
Sodium Chloride 0.9% (Flush) Syringe IV 12/24/23 05:59
PER PROTOCOL BEREKET
Tamsulosin HCl 0.4 mg 11/26/23 22:00 11/27/23 20:52
Tamsulosin 0.4 Mg Capsule PO 12/24/23 21:59 0.4 mg
HS BEREKET Administration
NIH Stroke Score
Subsequent NIH Scale
Date of Subsequent NIH Scale: 11/28/23
Time of Subsequent NIH Scale: 09:30
NIH Stroke Score
Level of Consciousness: 0 - Alert
LOC Questions: 0-Answers both correctly
LOC Commands: 0-Performs both correctly
Best Horizontal Gaze: 0-Normal
Visual Harrington: 0=Normal, no visual loss
Facial Palsy: 0=Normal, symmetrical
Motor - Right Arm: 0=No drift 10 seconds
Motor - Left Arm: 0=No drift 10 seconds
Motor - Right Le-No drift 5 seconds
Motor - Left Le-No drift 5 seconds
Limb Ataxia: 0-Absent
Sensation: 0-Normal
Best Language: 0-No aphasia
Dysarthria: 0-Normal
Extinction and Inattention: 0-No abnormality
Total Score:: 0
Modified [place] (mRS) Score
Modified [place] Scale (mRS): No symptoms
Score: 0
Alteplase Contraindication
Inclusion and Exclusion criteria reviewed: Yes
Reasons for NON-Tx with Thrombolytics ABSOLUTE Exclusions: Greater than 4.5 hrs from onset of sxs
IAT Contraindications: NIHSS < 6

Documented by User: Edwin Godinez MD 11/28/23 23:23
Today's Communication / Plan
-
88 yr. old male with h/o new seizure secondary to sepsis and temporooccipital ischemia.
Plan: Continue DAPT with Aspirin and Plavix, for 21 days. After 21 days group home antiplatelet therapy with Plavix.
Continue antibiotic therapy.
PT/OT
I agree with DIRECTOR MUSIC findings and plan. Pat may be discharged once medically stable.
Modified Afsaneh Score (MRS)
-
Score: 0
NIH Stroke Score
NIH Stroke Score
Total Score:: 0
Modified Afsaneh (mRS) Score
Score: 0
--- NOTE | 2023-11-28 10:11 | W.PN.HOSP.TC ---
Today's Communication/Plan
-
see A/P
Assessment / Plan
Assessment / Plan
Physical Exam
General: No Apparent Distress, Comfortable and Conversant; No Respiratory Distress
HEENT: NormoCephalic, Anicteric and Moist mucous membranes
Respiratory: Clear; No Wheezes or Rales
Cardiac: S1/S2 and Regular Rhythm
GI: Soft, Non Tender, Non Distended and Normal Bowel Sounds
Genito-urinary: Deferred by me
Musculoskeletal: No Edema
Skin: Warm and Dry
Neuro: AO x 3
Psych: Calm
A/P:
# Severe Sepsis POA with Proteus Bacteremia POA
IV Zosyn -> Ceftriaxone
repeat blood culture negative
ID consult
# Elevated troponin may be due to non-ischemic myocardial injury 2/2 sepsis
Trop peaked at 5.5
Cont ASA, Plavix
Cont Toprol, statin
Check echo
Card CS
# Mild hypoxic respiratory insufficiency
Cont 2L NC O2 support , wean as tolerated, he is not on home Ox
duonebs, incentive carine
# acute CVA
MRI brain showed possible right occipital lobe and right temporal occipital stroke
Check MRA
Check carotid US
DAPT as per neurology
Neuro on board
# DMT2
cont Empagliflozin
add ISS low
# HLD
cont. Atorvastatin
# BPH
Cont Tamsulosin
DVT Px: LMWH
Code: Full code
DW RN
DW sister at bedside
Anticipated Discharge: 24 - 48 hours
Subjective/Interval History
-
Date of Service: November 28, 2023
Objective Data
-
Labs:
Laboratory Results
11/28/23
06:00
WBC Pending
Hgb Pending
Hct Pending
Plt Count Pending
Sodium Pending
Potassium Pending
Chloride Pending
Carbon Dioxide Pending
BUN Pending
Creatinine Pending
Glucose Pending
Calcium Pending
Vital Signs:
Vital Signs
Temp Pulse Resp BP Pulse Ox
37.4 C 102 22 155/85 91
11/28/23 03:17 11/28/23 03:17 11/28/23 03:17 11/28/23 03:17 11/28/23 03:17
I&O
11/27/23 11/28/23 11/29/23
06:59 06:59 06:59
Intake Total 2930 / 2930 1190 / 1190
Output Total 1800 / 1800 2800 / 2800
Balance 1130 / 1130 -1610 / -1610
Review of Systems
-
All other systems: Reviewed and negative
Data Reviewed
-
MRI: Report Reviewed by me
Labs: Labs Reviewed by me
[2023-11-28] MEDS: ZOSYN IV (10:25)
[2023-11-28 10:37] LABS: Glucose - Point of Care 106 mg/dl (70-99)
[2023-11-28] MEDS: JARDIANCE 10 MG PO (10:37)
[2023-11-28] MEDS: PLAVIX 75 MG PO (10:38)
[2023-11-28] MEDS: LIPITOR 20 MG PO (10:38)
[2023-11-28] MEDS: ASPIR LOW (ENTERIC COATED) 81 MG PO (10:38)
--- NOTE | 2023-11-28 10:41 | CM ---
Addendum entered by Jillian Velazco 11/28/23 15:10:
Patient now INP, IMM provided to patient and son, reviewed with daughter.
Original Note:
Patient seen at bedside, patient sister here and visiting. Patient lives with daughter and in process of moving shortly. Daughter declined SNF and requesting VN for PT/OT and CM reviewed PAC data. Patient daughter will review and update CM. CM will
continue to follow for discharge planning needs.
Plan; home with VN/family supports.
[2023-11-28 11:16] LABS: Hemoglobin 12.2 g/dL (13.0-18.0); Mean Corp Hgb Conc. 34.9 g/dL (33.0-37.0); Mean Corpuscular Hgb 30.3 pg (27.0-31.0); Mean Corpuscular Volume 87.1 fL (80.0-94.0); Mean Platelet Volume 10.8 fL (7.4-10.4); Platelet Count 118 10^3/uL (130-400); Red Blood Cell Count 4.02 10^6/uL (4.70-6.10); White Blood Cell Count 7.6 10^3/uL (4.8-10.8)
[2023-11-28 11:54] LABS: Blood Urea Nitrogen 20 mg/dl (9-20); Calcium 8.3 mg/dl (8.4-10.2); Carbon Dioxide 15 mmol/L (22-30); Chloride 108 mmol/L (98-107); Estimated Creatinine Clearance 47 ml/min; Glucose 101 mg/dl (70-99); HDL Cholesterol 29 mg/dl; LDL Cholesterol, Calculated 47 mg/dl; Potassium 3.6 mmol/L (3.5-5.1); Sodium 136 mmol/L (135-145); Total Cholesterol 100 mg/dl (50-199); Triglyceride 123 mg/dl (10-149); Very Low Density Lipoprotein 24 mg/dl (0-30); eGFR 58.17
[2023-11-28] MEDS: ROCEPHIN 1000 MG IV (13:10)
[2023-11-28 14:19] LABS: Glucose - Point of Care 127 mg/dl (70-99)
--- NOTE | 2023-11-28 14:45 | W.PN.CARDCBS ---
Addendum entered and electronically signed by yKle Segura MD 11/28/23 17:01:
Correction. Lisinopril caused swelling. So unclear if would be a candidate for ARB or Entresto. Will hold off
Addendum entered and electronically signed by Kyle Segura MD 11/28/23 16:59:
Will add lisinopril for reduced ejection fraction.
Addendum entered and electronically signed by Kyle Segura MD 11/28/23 16:52:
Telemetry with 22 beat run of VT. Will increase Toprol.
Original Note:
Today's Communication / Plan
-
Ejection fraction has reduced to 30-35%
Evidence of non-STEMI based on ejection fraction reduction from 45-50% and EKG changes
He has never had chest pain during this admission
Discussed with patient and family in detail and they would prefer to continue medical therapy and concern regarding cardiac catheterization with new CVA as well
Neurology recommended aspirin and Plavix for 3 weeks but recommend aspirin and Plavix for at least 1 year
Patient can follow-up with cardiology at [place] Dr. Yoni Fernandes
Impression / Plan
-
Primary CARE physician: Dr. Herbert
Primary sports book server: Dr. Yoni Fernandes in [place]
Impression:
Sepsis/fever
Seizure disorder
Hypoxemia with possible aspiration pneumonia
Nstemi, peak troponin 5.5
History of CVA/MRI with subacute infarct in right occipital lobe and right temporal occipital junction
History of hypertension
History of hyperglycemia
History of diabetes
History of possible cardiomyopathy with possible normalization of ejection fraction
Echocardiogram 03/03/2023: Ejection fraction 45 to 50%
Echocardiogram 11/28/2023: Ejection fraction 30 to 35%, global hypokinesis, mild to moderate MR, mild aortic stenosis with mean gradient of 13 mmHg and aortic valve area 1.4 cm�, PA systolic 41 mmHg
Plan:
He is much improved
Likely had a non-ST ovation CT based on reduction in ejection fraction and some EKG changes
Of note he never had chest pain and feels well at present
Discussed with patient and family and they prefer to continue to treat medically with beta-jenelle and statin, LDL 47 on Lipitor. Also had new CVA and could be at risk for intervention for coronary procedure.
He reports his ejection fraction was reduced in the past on prior admission to [place] and then improve when seen by his outpatient sports book server Dr. Yoni Fernandes
Neurology is treating with aspirin and Plavix for 3 weeks then aspirin alone but will continue Plavix for 1 year with non-STEMI
Progress Note - Grounds Cleaner
Subjective
Date of Service: November 28, 2023
No chest pain or shortness of breath
Objective
Labs:
11/28/23 10:46
11/28/23 10:46
Labs
Hgb 12.2 g/dL (13.0-18.0) L 11/28/23 10:46
Hct 35.0 % (39.0-52.0) L 11/28/23 10:46
Plt Count 118 10^3/uL (130-400) L D 11/28/23 10:46
PT 16.4 Sec (11.4-14.6) H 11/26/23 05:19
INR 1.34 11/26/23 05:19
APTT 32.5 Sec (23.4-35.0) 11/26/23 05:19
Sodium 136 mmol/L (135-145) 11/28/23 10:46
Potassium 3.6 mmol/L (3.5-5.1) 11/28/23 10:46
BUN 20 mg/dl (9-20) 11/28/23 10:46
Creatinine 1.2 mg/dL (0.7-1.3) 11/28/23 10:46
Glucose 101 mg/dl (70-99) H 11/28/23 10:46
Troponins
11/26/23 11/26/23 11/27/23
05:19 10:51 08:05
Troponin I 0.994 H* 3.420 H* D 5.500 H*
11/27/23
20:02
Troponin I 3.610 H*
Vital Signs and I&O:
Vital Signs
Temp Pulse Resp BP Pulse Ox
98 F 76 17 135/62 97
11/28/23 11:02 11/28/23 11:02 11/28/23 11:02 11/28/23 11:02 11/28/23 11:02
Vital Signs
Temp Pulse Resp BP Pulse Ox
98 F 76 17 135/62 97
11/28/23 11:02 11/28/23 11:02 11/28/23 11:02 11/28/23 11:02 11/28/23 11:02
Intake & Output
11/26/23 11/27/23 11/28/23 11/29/23
06:59 06:59 06:59 06:59
Intake Total 80 / 160 2930 / 2930 1190 / 1190
Output Total 1800 / 1800 2800 / 2800
Balance 80 / 160 1130 / 1130 -1610 / -1610
Physical Exam
Physical Exam
General: Well developed, well nourished in NAD.
Neck: Supple, no JVD, HJR, carotids +2 B/L, no bruits bilaterally.
Heart: Non displaced PMI, RRR, no murmurs, No S3, S4, no rubs.
Lungs: Crackles at the right base
Extremities: No clubbing, cyanosis or edema bilaterally.
Neuro: Grossly nonfocal, awake, alert and oriented x3.
--- NOTE | 2023-11-28 15:06 | CON.ID ---
Addendum entered and electronically signed by Alexy Drummond, 11/28/23 16:59:
I personally performed a history and physical exam of the patient and discussed management with the resident. I reviewed the resident's note and agree with the documented findings and plan of care HPI/CC.
Impression
Bacteremia
- Proteus mirabilis in blood culture.
Hypoxic respiratory insufficiency
-Patient weaned off of oxygen supplementation
Elevated troponin
-Likely due to nonischemic myocardial injury, peak troponin 3.4 so far
CVA
-DAPT as per neurology
Lactic acidosis
Elevated procalcitonin
Leukocytosis
-Trended down to 7.6
Prior CVA
Type 2 diabetes
Hyperlipidemia
BPH
Recommendation:
Patient is clinically improving, afebrile, hemodynamically stable.
Leukocytosis�trended down
Lactic acidosis - resolved
Continue ceftriaxone for the present.
Follow WBC / temps.
Will ask micro to w/u urine specimen.
Original Note:
Consultation
-
Date/Time Consultation Requested: 11/28/2023, 1015 hrs.
Date/Time Consultation Performed: 11/28/2023, 1515 hrs.
Requesting Provider: Dr. Cony Car
Performing Provider: Dr. Alexy Drummond
Chief Complaint / Past History
Chief Complaint
Proteus mirabilis bacteremia
History of Present Illness
Mr. Jama Pinto was evaluated at the request of Dr. Josep Donnelly. History is obtained from patient along with chart review.
88-year-old male, ,with past medical history significant for CVA, hypertension, hyperlipidemia presented to the emergency room on 11/25/2023 with fever up to 101 per his report, associated with sinus congestion, cough, generalized weakness and left
knee pain, patient feels sick on arrival.These symptoms has been ongoing since 1 day prior to the admission. No history of hematemesis, cough, purulent sputum production, shortness of breath, chest pain, palpitations, nausea, vomiting, diarrhea.
No recent sick contacts or traveling. He was more concerned about his lower extremity weakness and unsteady gait which started a couple of days before the infectious prodrome.
While in the emergency room patient developed acute onset of change in mental status, tachycardic to the 130, unresponsive, both eyes rolled up then with some bilateral shaking and foaming in the mouth. Sats dropped to 70%. Patient was
hypertensive. Temperature at that time was 102 �F.
He was transferred to the critical care unit for observation for suspected sepsis. Patient was started on IV fluids, Zosyn. Urine analysis�evidence of bacteriuria. Chest x-ray without pneumonia. Elevated procalcitonin�18.01. Patient on 3 L
nasal cannula, for hypoxemic respiratory insufficiency. Blood culture�Proteus mirabilis.
Patient was transitioned to vancomycin, ceftriaxone.
During the clinical encounter, patient is comfortable, mentions that his symptoms have improved.
Past History
Past Medical History: CVA, Hypercholesterolemia and NIDDM
Additional Past Medical History:
BPH
Past Surgical History: Appendectomy and Other (Hernia repair)
Allergy History:
lisinopril Allergy (Verified 11/25/23 23:26)
Swelling
Medications Reviewed: Yes
Current Antibiotics:
Vancomycin
Ceftriaxone
Social History
Tobacco: Non-Smoker
Alcohol: None
Drug: None
Living: With Family (lives with daughter)
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
Family History
Family History: Not Pertinent
Review of Systems
Review of Systems
As per HPI
Vital Signs
Temp Pulse Resp BP Pulse Ox
98 F 76 17 135/62 97
11/28/23 11:02 11/28/23 11:02 11/28/23 11:02 11/28/23 11:02 11/28/23 11:02
Physical Exam
Physical Exam
Constitutional: No Acute Distress and Comfortable
Eyes: Pupils Equal and Pupils Round
Cardiovascular: S1/S2
Pulmonary: Clear
Gastrointestinal: Soft, Non Tender, Non Distended and Normal Bowel Sounds
Genito-Urinary: Graham
Extremities: Edema (1+ bilateral lower extremities)
Skin: Warm and Dry
Neurological: Awake, Alert, Oriented and AO x 3
Lab / Diagnostic Study Results
11/28/23 10:46
11/28/23 10:46
Abs Immat Gran (auto) 0.1 10^3/uL (0-0.05) H 11/26/23 00:02
Absolute Neuts (auto) 11.5 10^3/uL (1.4-6.5) H 11/26/23 00:02
Absolute Lymphs (auto) 0.3 10^3/uL (1.2-3.4) L 11/26/23 00:02
Absolute Monos (auto) 0.1 10^3/uL (0.1-0.6) 11/26/23 00:02
Absolute Basos (auto) 0.0 10^3/uL (0-0.2) 11/26/23 00:02
Immature Gran % 0.6 % (0-0.5) H 11/26/23 00:02
Neutrophils % 95.2 % (42.2-75.2) H 11/26/23 00:02
Lymphocytes % 2.6 % (20.5-51.1) L 11/26/23 00:02
Monocytes % 1.2 % (1.7-9.3) L 11/26/23 00:02
Eosinophils % 0.1 % (0-6) 11/26/23 00:02
Basophils % 0.3 % (0-2) 11/26/23 00:02
PT 16.4 Sec (11.4-14.6) H 11/26/23 05:19
INR 1.34 11/26/23 05:19
Lactic Acid Cancelled 11/26/23 17:04
Procalcitonin 18.01 ng/ml (0.0-0.25) H* 11/26/23 01:16
Ur Squamous Epith Cells 3-5 /LPF (Few) 11/26/23 01:39
Microbiology Results
Micro:
11/27/23 09:45 Blood Culture - Preliminary
Blood/Venous No Growth in 24 hours- Final report to follow
11/26/23 01:13 Blood Culture - Preliminary
Blood/Venous Proteus mirabilis
Gram Stain - Preliminary
11/26/23 01:39 Urine Culture - Final
Urine
Imaging:
Chest x-ray 11/26/2023�no acute pulmonary process
Head CT 11/26/2023� No acute intracranial abnormalities. Mild atrophy and small vessel ischemic change.Old infarcts within the right frontoparietal lobe and right cerebellar hemisphere. No suspected acute infarct.
Brain MRI 11/26/2023� 5 punctate 2 mm areas of abnormal increased signal on diffusion imaging in the cortex and subcortical white matter of right occipital and right temporal occipital junction consistent with areas of subacute ischemic change. 6 cm
area of volume loss and encephalomalacia in the posterior superior lateral aspect of the right frontal lobe consistent with old infarct. Moderate cortical and cerebellar atrophy with moderate nonspecific white matter changes.
Head MRA 11/27/2023�normal
Vascular ultrasound 11/28/2023�mild amount of mixed calcified noncalcified plaque within BOTH carotid bulbs and proximal internal carotid arteries causing less than 50% luminal narrowing bilaterally.
Assessment / Plan
Resident impression
Bacteremia
-Proteus mirabilis in blood culture.
Hypoxic respiratory insufficiency
-Patient weaned off of oxygen supplementation
Elevated troponin
-Likely due to nonischemic myocardial injury, peak troponin 3.4 so far
CVA
-DAPT as per neurology
Lactic acidosis
Elevated procalcitonin
Leukocytosis
-Trended down to 7.6
Conditions prior to admission
Prior CVA
Type 2 diabetes
Hyperlipidemia
BPH
Recommendation
Patient is clinically improving, afebrile, hemodynamically stable.
Leukocytosis�trended down
Lactic acidosis resolved
Blood cultures showed evidence of Proteus mirabilis bacteremia, awaiting second set of blood cultures report.
No prior history of UTIs.
Urine culture�probable contamination
Continue ceftriaxone
--- NOTE | 2023-11-28 16:04 | PHA.VAN.FU ---
Vancomycin Assessment / Plan
- Assessment
Renal Function: Stable
WBC's are: WNL
In the past 24 hrs, patient has been: Afebrile
Concomitant Antimicrobials: ceftriaxone
- Dosing Plan
Continue: Vanc 1500mg Q24H
- Monitoring Plan
No level(s) ordered at this time: follow-up if vancomycin continued
- Follow Up
Pharmacy will continue to follow.
Vancomycin Follow UP
- -
Patient Age: 88
Patient Sex: Male
Vancomycin Day #: 3
Indication: Bacteremia
Requesting Provider: Barbara
Pertinent Antimicrobial Allergies:
NKDA
Height / Weight:
Height 6 ft
Actual Weight 89.9 kg
IBW in k.6
Adjusted BW in k.5
Pertinent Past Medical History: DM
- Vital Signs / Lab Results
Temp Pulse Resp BP Pulse Ox
97.4 F 87 16 135/74 94
11/28/23 15:15 11/28/23 15:15 11/28/23 15:15 11/28/23 15:15 11/28/23 15:15
Lab Results - Hematology
11/26/23 11/27/23 11/28/23
00:02 07:49 10:46
WBC 12.1 H 10.1 7.6
Lab Results - Chemistry
11/26/23 11/26/23 11/27/23
00:02 05:19 07:49
BUN 22 H 20 22 H
Creatinine 1.3 1.1 1.3
Estimated Creat Clear 42 51 43
Albumin 4.3 2.7 L D
11/27/23 11/28/23
20:01 10:46
BUN 23 H 20
Creatinine 1.2 1.2
Estimated Creat Clear 47 47
Albumin
11/26/23 11/26/23 11/26/23
00:02 03:50 05:04
Lactic Acid 3.0 H 3.4 H Cancelled
11/26/23 11/26/23 11/26/23
10:51 12:29 17:04
Lactic Acid 2.2 H 1.6 Cancelled
Microbiology Results
11/27/23 09:45 Blood Culture - Preliminary
Blood/Venous No Growth in 24 hours- Final report to follow
11/26/23 01:13 Blood Culture - Preliminary
Blood/Venous Proteus mirabilis
Gram Stain - Preliminary
11/26/23 01:39 Urine Culture - Final
Urine
--- NOTE | 2023-11-28 16:35 | PTCARENOTE ---
Patient with 22 beat run of v tach on telemetry. Patient sitting in bed talking with family, asymptomatic. Dr. Car and Dr. Segura notified. Will monitor.
[2023-11-28 16:42] LABS: Glucose - Point of Care 117 mg/dl (70-99)
[2023-11-28] MEDS: LOVENOX 40 MG SC (18:02)
[2023-11-28] MEDS: TOPROL XL 50 MG PO (21:15)
[2023-11-28] MEDS: FLOMAX 0.4 MG PO (21:16)
[2023-11-29] VITALS (8 sets, daily range): BP systolic 129–157; BP diastolic 68–89; PULSE 100; O2SAT 95
[2023-11-29] MEDS: VANCOCIN 300 ML IV (06:04)
[2023-11-29] MEDS: VANCOCIN 300 MG IV (06:04)
--- NOTE | 2023-11-29 06:48 | W.PN.UPDATE ---
Update Note
Progress Note Update
0635 pt had 10 beat VT this am. RN reported 22 beat during dayshift. Toprol was increased to 50mg HS. Pt asymptomatic
0605 18 run of SVT to 160. HD stable. Asymptomatic. Will give 5mg lopressor iv x1 to suppress. May need further titration in his metoprolol doses
--- NOTE | 2023-11-29 06:50 | PTCARENOTE ---
Pt tele alerted for 10 beat run of vtach. Asymptomatic. ENDOSCOPY REGISTERED NURSE made aware. Pt then had an [address], asymptomatic BP 139/69 HR 75. ENDOSCOPY REGISTERED NURSE made aware, 5mg Lopressor IV STAT ordered- administered. No further orders.
[2023-11-29] MEDS: LOPRESSOR 5 MG IV (06:53)
[2023-11-29 07:52] LABS: Glucose - Point of Care 97 mg/dl (70-99)
--- NOTE | 2023-11-29 08:35 | W.PN.HOSP.TC ---
Today's Communication/Plan
-
dispo planning
Assessment / Plan
Assessment / Plan
A/P:
# Severe Sepsis POA with Proteus Bacteremia
IV Zosyn -> Ceftriaxone
repeat blood culture negative
Urine culture with 100,000 CFU/ML Mixed delores present, Probable contamination
ID on board
# Elevated troponin may be due to non-ischemic myocardial injury 2/2 sepsis
# Non-sustained asymptomatic VT
Trop peaked at 5.5
Echo noted : EF 30 to 35%. Stage I diastolic dysfunction
Toprol was increased to 50mg HS.
Cont ASA, Plavix
Card on board, discussed with patient and family and they prefer medical therapy (concern for cardiac catheterization with new CVA),
although neurology recommended aspirin and Plavix for 3 weeks but card recommend aspirin and Plavix for at least 1 year
# acute CVA
MRI brain showed possible right occipital lobe and right temporal occipital stroke
MRA Normal.
Carotid US: Mild amount of mixed calcified noncalcified plaque within BOTH carotid bulbs and proximal internal carotid arteries causing less than 50% luminal narrowing bilaterally.
DAPT as per neurology
Neuro on board
# Mild hypoxic respiratory insufficiency, resolved
Weaned 2L NC to RA, he is not on home Ox
duonebs, incentive carine
# DMT2
cont Empagliflozin
ISS low
# HLD
cont Atorvastatin
# BPH
Cont Tamsulosin
DVT Px: LMWH
Code: Full code
Dispo: PT recc SNF
DW Daughter on the phone
DW Neuro
DW CM
Anticipated Discharge: Within 24 hours
Subjective/Interval History
-
Date of Service: November 29, 2023
Objective Data
-
Labs:
Laboratory Results
11/29/23
07:49
WBC Pending
Hgb Pending
Hct Pending
Plt Count Pending
Sodium Pending
Potassium Pending
Chloride Pending
Carbon Dioxide Pending
BUN Pending
Creatinine Pending
Glucose Pending
Calcium Pending
Vital Signs:
Vital Signs
Temp Pulse Resp BP Pulse Ox
36.7 C 75 18 139/65 96
11/29/23 03:00 11/29/23 06:53 11/29/23 03:00 11/29/23 06:53 11/29/23 03:00
I&O
11/28/23 11/29/23 11/30/23
06:59 06:59 06:59
Intake Total 1190 / 1190
Output Total 2800 / 2800 350 / 350
Balance -1610 / -1610 -350 / -350
Review of Systems
-
All other systems: Reviewed and negative
Physical Exam
-
General: Well Developed, Well Nourished, No Apparent Distress, Comfortable, Conversant and Appears Chronically Ill; Negative Respiratory Distress
HEENT: Normocephalic, Atraumatic, Nose Appears Normal and Ears Appear Normal; Negative Oxygen
Respiratory: Clear to Auscultation and Non Labored Respirations; Negative Accessory Resp Muscle Use
Cardiac: Regular Rhythm and S1/S2
GI: Soft, Nontender, Nondistended and Normal Bowel Sounds
Skin: Warm and Dry
Neuro: Awake and Alert
Psych: Calm and Intact Judgement/Insight
Data Reviewed
-
MRI: Report Reviewed by me
Labs: Labs Reviewed by me
[2023-11-29 08:47] LABS: Hematocrit 33.6 % (39.0-52.0); Hemoglobin 11.8 g/dL (13.0-18.0); Mean Corp Hgb Conc. 35.1 g/dL (33.0-37.0); Mean Corpuscular Hgb 31.3 pg (27.0-31.0); Mean Corpuscular Volume 89.1 fL (80.0-94.0); Mean Platelet Volume 10.9 fL (7.4-10.4); Platelet Count 111 10^3/uL (130-400); Red Blood Cell Count 3.77 10^6/uL (4.70-6.10)
[2023-11-29] MEDS: ASPIR LOW (ENTERIC COATED) 81 MG PO (08:58)
[2023-11-29] MEDS: PLAVIX 75 MG PO (08:58)
[2023-11-29] MEDS: LIPITOR 20 MG PO (08:58)
[2023-11-29] MEDS: JARDIANCE 10 MG PO (08:58)
[2023-11-29 09:05] LABS: Blood Urea Nitrogen 18 mg/dl (9-20); Calcium 8.4 mg/dl (8.4-10.2); Carbon Dioxide 18 mmol/L (22-30); Chloride 108 mmol/L (98-107); Estimated Creatinine Clearance 56 ml/min; Glucose 96 mg/dl (70-99); Magnesium 1.9 mg/dl (1.6-2.3); Potassium 3.6 mmol/L (3.5-5.1); Sodium 137 mmol/L (135-145); eGFR > 60.00
--- NOTE | 2023-11-29 11:57 | W.PN.CARDCBS ---
Addendum entered and electronically signed by Kyle Segura MD 11/29/23 13:00:
I saw and examined the patient.
The ROUTE CLERK or PA's note was reviewed and I agree with the note.
Comment: General: Well developed, well nourished in NAD.
Neck: Supple, no JVD, HJR, carotids +2 B/L, no bruits bilaterally.
Heart: Non displaced PMI, RRR, no murmurs, No S3, S4, no rubs.
Lungs: Clear to auscultation bilaterally, no wheeze, rhonchi, rubs bilaterally,
normal expiratory phase.
Extremities: No clubbing, cyanosis or edema bilaterally.
Neuro: Grossly nonfocal, awake, alert and oriented x3.
Continues with brief episodes of nonsustained V. tach. Toprol was increased on 11/27. May need to consider adding amiodarone if persist. He has reduced ejection fraction we are treating medically given comorbid illnesses and patient and family
request.. Unable to give lisinopril or ARB given facial swelling in the past with lisinopril. Will add Aldactone. He is on Jardiance.
Original Note:
Today's Communication / Plan
-
Replete K+, mag
Continue increase Toprol
Continue ASA, Plavix, statin
Impression / Plan
-
Primary CARE physician: Dr. Herbert
Primary administrative services assistant: Dr. Yoni Fernandes [facility] cardiology
Impression:
Sepsis/fever
Seizure disorder
Hypoxemia with possible aspiration pneumonia
Nstemi, peak troponin 5.5
History of CVA/MRI with subacute infarct in right occipital lobe and right temporal occipital junction
History of hypertension
History of hyperglycemia
History of diabetes
History of possible cardiomyopathy with possible normalization of ejection fraction
Echocardiogram 03/03/2023: Ejection fraction 45 to 50%
Echocardiogram 11/28/2023: Ejection fraction 30 to 35%, global hypokinesis, mild to moderate MR, mild aortic stenosis with mean gradient of 13 mmHg and aortic valve area 1.4 cm�, PA systolic 41 mmHg
Plan:
He continues to improve
Likely had a non-ST elevation AR based on reduction in ejection fraction and some EKG changes
He never had chest pain and feels well at present. Family opts for conservative management of CAD. Continue to treat medically with beta-jenelle and statin, LDL 47 on Lipitor. Also had new CVA and could be at risk for intervention for coronary
procedure.
Neurology is treating with aspirin and Plavix for 3 weeks then aspirin alone given recent stroke but will continue Plavix and ASA for 1 year with non-STEMI
Review of telemetry shows frequent PVCs with frequent couplets and short runs of nonsustained ventricular tachycardia. Toprol uptitrated to 50 mg daily starting 11/28/2023.
Consider addition of amiodarone if further episodes of VT Given reduced EF
potassium 3.8, magnesium 1.9. Will replete keep potassium greater than 4, magnesium greater than 2
Consider addition of CARIN/ARB or Aldactone. Patient does have lisinopril listed as allergy for swelling. Will need to further investigate what kind of swelling
He reports his ejection fraction was reduced in the past on prior admission to [facility] and then improve when seen by his outpatient administrative services assistant Dr. Yoni Fernandes
Progress Note - Patent Drafter
Subjective
Date of Service: November 29, 2023
Patient seen and examined. Sitting up in bed. Denies chest pain or SOB.
Objective
Labs:
11/29/23 07:49
11/29/23 07:49
Labs
Hgb 11.8 g/dL (13.0-18.0) L 11/29/23 07:49
Hct 33.6 % (39.0-52.0) L 11/29/23 07:49
Plt Count 111 10^3/uL (130-400) L 11/29/23 07:49
PT 16.4 Sec (11.4-14.6) H 11/26/23 05:19
INR 1.34 11/26/23 05:19
APTT 32.5 Sec (23.4-35.0) 11/26/23 05:19
Sodium 137 mmol/L (135-145) 11/29/23 07:49
Potassium 3.6 mmol/L (3.5-5.1) 11/29/23 07:49
BUN 18 mg/dl (9-20) 11/29/23 07:49
Creatinine 1.0 mg/dL (0.7-1.3) 11/29/23 07:49
Glucose 96 mg/dl (70-99) 11/29/23 07:49
Troponins
11/27/23 11/27/23
08:05 20:02
Troponin I 5.500 H* 3.610 H*
Vital Signs and I&O:
Vital Signs
Temp Pulse Resp BP Pulse Ox
98.1 F 77 16 148/71 94
11/29/23 07:52 11/29/23 07:52 11/29/23 07:52 11/29/23 07:52 11/29/23 07:52
Vital Signs
Temp Pulse Resp BP Pulse Ox
98.1 F 77 16 148/71 94
11/29/23 07:52 11/29/23 07:52 11/29/23 07:52 11/29/23 07:52 11/29/23 07:52
Intake & Output
11/27/23 11/28/23 11/29/23 11/30/23
06:59 06:59 06:59 06:59
Intake Total 2930 / 2930 1190 / 1190
Output Total 1800 / 1800 2800 / 2800 350 / 350
Balance 1130 / 1130 -1610 / -1610 -350 / -350
Physical Exam
Physical Exam
GEN: No distress, awake, Ox3, sitting up in bed
HEENT: supple, anicteric, mmm
LUNGS: Faint crackles at bases Rt>Lt otherwise CTA, no wheezes
CV: Reg, S1/S2, 1/6 syst murmur
ABD: soft, BS+, NT/ND
EXT: No edema, clubbing or cyanosis
: indwelling harvey with yellow ruine
NEURO: Gross non-focal
SKIN: No rash
[2023-11-29 12:09] LABS: Glucose - Point of Care 97 mg/dl (70-99)
[2023-11-29] MEDS: KCL 40 MEQ PO (13:14)
[2023-11-29] MEDS: MAGNESIUM OXIDE 500 MG PO (13:14)
[2023-11-29] MEDS: ROCEPHIN 1000 MG IV (13:16)
[2023-11-29] MEDS: STERILE WATER FOR INJECTION 10 ML IV (13:18)
--- NOTE | 2023-11-29 14:49 | PN.CDI ---
CDI
- -
CDI:
Physician Documentation Request
Admit Date: 11/28/23 11:05
Dear Doctor Josep,
11/27 cardiology progress note states ' Evidence of non-STEMI based on ejection fraction reduction from 45-50% and EKG changes, He has never had chest pain during this admission'
11/28 cardiology note 'Nstemi, peak troponin 5.5'
11/28 Hospitalist progress note states 'Elevated troponin may be due to non-ischemic myocardial injury 2/2 sepsis'
In an attempt to clarify potentially conflicting documentation, please clarify the etiology of the elevated troponin:
NSTEMI
nonischemic myocardial injury
Other
Use of terms such as suspected, likely, concern for, or probable (associated with a specific diagnosis that is being evaluated, monitored, or treated as if it exists) are acceptable and can be coded in the inpatient setting, when documented at the
time of discharge.
Thank you,
Alannah Dye RN, BSN
CDI Specialist
tiger text
Please use your independent medical judgment in providing your response.
[2023-11-29] MEDS: ALDACTONE 12.5 MG PO (15:28)
[2023-11-29 16:34] LABS: Glucose - Point of Care 100 mg/dl (70-99)
[2023-11-29] MEDS: LOVENOX 40 MG SC (17:54)
[2023-11-29 21:01] LABS: Glucose - Point of Care 121 mg/dl (70-99)
[2023-11-29] MEDS: FLOMAX 0.4 MG PO (21:59)
[2023-11-29] MEDS: TOPROL XL 50 MG PO (21:59)
[2023-11-30 03:00] VITALS: BP 129/75
[2023-11-30 08:00] VITALS: BP 142/74
[2023-11-30] MEDS: ALDACTONE 12.5 MG PO (08:10)
[2023-11-30] MEDS: LIPITOR 20 MG PO (08:11)
[2023-11-30] MEDS: ASPIR LOW (ENTERIC COATED) 81 MG PO (08:11)
[2023-11-30] MEDS: JARDIANCE 10 MG PO (08:11)
[2023-11-30] MEDS: PLAVIX 75 MG PO (08:11)
[2023-11-30 08:19] LABS: Glucose - Point of Care 98 mg/dl (70-99)
--- NOTE | 2023-11-30 08:52 | W.PN.CARDCBS ---
Addendum entered and electronically signed by Kyle Segura MD 11/30/23 11:24:
I saw and examined the patient.
The ACCOUNTS RECEIVABLE BOOKKEEPER or PA's note was reviewed and I agree with the note.
Comment: General: Well developed, well nourished in NAD.
Neck: Supple, no JVD, HJR, carotids +2 B/L, no bruits bilaterally.
Heart: Non displaced PMI, RRR, no murmurs, No S3, S4, no rubs.
Lungs: Scattered rhonchi
Extremities: No clubbing, cyanosis or edema bilaterally.
Neuro: Grossly nonfocal, awake, alert and oriented x3
Stable cardiology status for transfer to rehab. Discussed with patient and family in detail. Given records so patient can follow-up with outpatient gift shop assistant. Family and patient wished only conservative treatment of cardiomyopathy and
non-STEMI in the setting of sepsis. Brief runs of nonsustained VT which have improved on higher dose of Toprol.
Original Note:
Today's Communication / Plan
-
Continue medical management of NSTEMI
Aspirin and plavix x 1 year
Lipitor 20mg daily
Continue Toprol and spironolactone
Follow up with primary gift shop assistant.
Impression / Plan
-
Primary CARE physician: Dr. Herbert
Primary gift shop assistant: Dr. Yoni Fernandes [facility] cardiology
Impression:
Sepsis/fever
Seizure disorder
Hypoxemia with possible aspiration pneumonia
NSTEMI, peak troponin 5.5
h/o CVA/MRI with subacute infarct in right occipital lobe and right temporal occipital junction
Hypertension
Hyperglycemia
Diabetes
h/o cardiomyopathy with possible normalization of ejection fraction
Echo 03/03/2023: EF 45 to 50%
Echo 11/28/2023: EF 30 to 35%, global hypokinesis, mild to moderate MR, mild with mean gradient of 13 mmHg and aortic valve area 1.4 cm�, PA systolic 41 mmHg
Plan:
-Presented with weakness and fever with possible seizure.
-Elevated troponin noted on arrival, peaking at 5.5 and trending down thereafter. Suspect NSTEMI, however have been managing conservatively per family wishes.
-Continues on Toprol and Jardiance. Spironolactone started 11/28. Does have h/o possible lisinopril allergy (swelling). Hold off on addition of CARIN/ARB for now. If not angioedema, may consider adding as OP.
-Will continue aspirin and Plavix for 1 year. Also w/ evidence of new subacute CVA. Neurology following.
-Echo showed EF down to 30-35%.
-Frequent PVCs noted on telemetry w/ short runs of NSVT. Continue Toprol at higher dose 50mg daily.
-K and mag stable.
-Feeling well with no chest pain, SOB, or dizziness.
-Continue lipitor 20mg daily. LDL 47.
-Will follow up with primary gift shop assistant.
Progress Note - Instrument Specialist
Subjective
Date of Service: November 30, 2023
No complaints. Denies chest pain or SOB.
Objective
Labs:
Labs
Hgb 11.8 g/dL (13.0-18.0) L 11/29/23 07:49
Hct 33.6 % (39.0-52.0) L 11/29/23 07:49
Plt Count 111 10^3/uL (130-400) L 11/29/23 07:49
PT 16.4 Sec (11.4-14.6) H 11/26/23 05:19
INR 1.34 11/26/23 05:19
APTT 32.5 Sec (23.4-35.0) 11/26/23 05:19
Sodium 137 mmol/L (135-145) 11/29/23 07:49
Potassium 3.6 mmol/L (3.5-5.1) 11/29/23 07:49
BUN 18 mg/dl (9-20) 11/29/23 07:49
Creatinine 1.0 mg/dL (0.7-1.3) 11/29/23 07:49
Glucose 96 mg/dl (70-99) 11/29/23 07:49
Troponins
11/27/23 11/27/23
08:05 20:02
Troponin I 5.500 H* 3.610 H*
Vital Signs and I&O:
Vital Signs
Temp Pulse Resp BP Pulse Ox
98.4 F 68 18 142/74 96
11/30/23 03:00 11/30/23 08:10 11/30/23 03:00 11/30/23 08:10 11/30/23 03:00
Vital Signs
Temp Pulse Resp BP Pulse Ox
98.4 F 68 18 142/74 96
11/30/23 03:00 11/30/23 08:10 11/30/23 03:00 11/30/23 08:10 11/30/23 03:00
Intake & Output
11/28/23 11/29/23 11/30/23 12/01/23
06:59 06:59 06:59 06:59
Intake Total 1190 / 1190 1520 / 1520
Output Total 2800 / 2800 350 / 350 2675 / 2675
Balance -1610 / -1610 -350 / -350 -1155 / -1155
Physical Exam
Physical Exam
GEN: No distress, awake, alert, oriented x3
HEENT: supple, anicteric, mmm
LUNGS: CTA b/l, no wheezes/rales
CV: Reg, S1/S2, 1/6 syst murmur
EXT: No clubbing, cyanosis, or edema
NEURO: Gross non-focal
SKIN: Warm, dry, no rash
--- NOTE | 2023-11-30 09:12 | W.PN.HOSP.TC ---
Addendum entered and electronically signed by Cony Car MD 11/30/23 15:43:
total DC time 38 min
Addendum entered and electronically signed by Cony Car MD 11/30/23 11:55:
# nonischemic myocardial injury
# Acute hypoxic respiratory insufficiency, resolved
Original Note:
Today's Communication/Plan
-
for SNF
Assessment / Plan
Assessment / Plan
A/P:
# Severe Sepsis POA with Proteus Bacteremia
IV Zosyn -> Ceftriaxone
repeat blood culture negative
Urine culture with 100,000 CFU/ML Mixed delores present, Probable contamination
ID on board
# Elevated troponin may be due to non-ischemic myocardial injury 2/2 sepsis
# Non-sustained asymptomatic VT
Trop peaked at 5.5
Echo noted : EF 30 to 35%. Stage I diastolic dysfunction
Toprol was increased to 50mg HS.
Cont ASA, Plavix
Card on board, discussed with patient and family and they prefer medical therapy (concern for cardiac catheterization with new CVA),
although neurology recommended aspirin and Plavix for 3 weeks but card recommend aspirin and Plavix for at least 1 year
# acute CVA
MRI brain showed possible right occipital lobe and right temporal occipital stroke
MRA Normal.
Carotid US: Mild amount of mixed calcified noncalcified plaque within BOTH carotid bulbs and proximal internal carotid arteries causing less than 50% luminal narrowing bilaterally.
DAPT as per neurology
LDL 47, cont Lipitor
Neuro on board
# Mild hypoxic respiratory insufficiency, resolved
Weaned 2L NC to RA, he is not on home Ox
duonebs, incentive carine
# DMT2
cont Empagliflozin
ISS low
# HLD
cont Atorvastatin
# BPH
Cont Tamsulosin
DVT Px: LMWH
Code: Full code
Dispo: PT recc SNF
DW CM
Anticipated Discharge: 24 - 48 hours
Subjective/Interval History
-
Date of Service: November 30, 2023
Objective Data
-
Labs:
Laboratory Results
11/30/23
08:51
WBC Pending
Hgb Pending
Hct Pending
Plt Count Pending
Sodium Pending
Potassium Pending
Chloride Pending
Carbon Dioxide Pending
BUN Pending
Creatinine Pending
Glucose Pending
Calcium Pending
Vital Signs:
Vital Signs
Temp Pulse Resp BP Pulse Ox
36.4 C 68 20 142/74 96
11/30/23 08:00 11/30/23 08:10 11/30/23 08:00 11/30/23 08:10 11/30/23 08:00
I&O
11/29/23 11/30/23 12/01/23
06:59 06:59 06:59
Intake Total 1520 / 1520
Output Total 350 / 350 2675 / 2675
Balance -350 / -350 -1155 / -1155
Review of Systems
-
All other systems: Reviewed and negative
Physical Exam
-
General: Well Developed, Well Nourished, No Apparent Distress, Comfortable, Conversant and Appears Chronically Ill; Negative Respiratory Distress
HEENT: Normocephalic, Atraumatic, Nose Appears Normal and Ears Appear Normal; Negative Oxygen
Respiratory: Clear to Auscultation and Non Labored Respirations; Negative Accessory Resp Muscle Use
Cardiac: Regular Rhythm and S1/S2
GI: Soft, Nontender, Nondistended and Normal Bowel Sounds
Skin: Warm and Dry
Neuro: Awake and Alert
Psych: Calm and Intact Judgement/Insight
Data Reviewed
-
MRI: Report Reviewed by me
Labs: Labs Reviewed by me
[2023-11-30 09:34] LABS: Hematocrit 34.2 % (39.0-52.0); Mean Corp Hgb Conc. 35.1 g/dL (33.0-37.0); Mean Corpuscular Volume 85.5 fL (80.0-94.0); Mean Platelet Volume 10.5 fL (7.4-10.4); Platelet Count 134 10^3/uL (130-400); Red Cell Dist. Width 13.9 % (11.5-14.5); White Blood Cell Count 6.7 10^3/uL (4.8-10.8)
--- NOTE | 2023-11-30 09:36 | CM ---
Addendum entered by Felicity Santamaria 11/30/23 15:43:
[employer]ash authorization
approved 7 days acute rehab
Start date 11/30/23, LCD/NRD 12/06/23
authorization# [id number]
updates to p# [phone]
IMM completed.
Plan: [facility] today
[facility]
Report# [phone]

Addendum entered by Felicity Santamaria 11/30/23 10:35:
Spoke with patients sister Rachelle Guardado- C# [phone] H# [phone] (added to contacts)
She requested acute rehab at [facility].
referral placed.
Skilled options: [facility], [facility] and [facility] in order. referrals placed.
Original Note:
Spoke with daughter Axel this am re d/c plans.
Plan was for home with , however, Axel is in the middle of a move and does not have accommodations completed for her dad yet.
He will be moving in with her.
Daughter gave verbal permission for to speak with patients sister Rachelle to discuss skilled rehab options.
Referrals will be sent.
Plan: skilled rehab, will require insurance authorization.
[2023-11-30 10:25] LABS: Blood Urea Nitrogen 16 mg/dl (9-20); Calcium 8.7 mg/dl (8.4-10.2); Carbon Dioxide 19 mmol/L (22-30); Chloride 105 mmol/L (98-107); Estimated Creatinine Clearance 62 ml/min; Glucose 117 mg/dl (70-99); Magnesium 1.9 mg/dl (1.6-2.3); Sodium 136 mmol/L (135-145); eGFR > 60.00
--- NOTE | 2023-11-30 11:11 | PN.CDI ---
CDI
- -
CDI:
Physician Documentation Request
Admit Date: 11/28/23 11:05
Dear Doctor Josep,
ED addendum states 'pt with increased HR, decreased sats'
ED nurses note states 'pts HR increased to 135, pts eyes rolled to back of head, pt became rigorous and O2 sat dropped to 50s%....Agonal breathing...ortiz in color.... nonrebreather placed on pt at 15L'
Documented vital signs show patient to be using high flow oxygen.
Pulmonary consult and hospitalist note states 'hypoxemia'
ABG at time of occurrence
Laboratory Tests
11/26/23
03:38
pH 7.30 L
pCO2 30 L
pO2 275 H
HCO3 14.8 L*
O2 Delivery Level Nrb
Please clarify which of the following accurately represents the patient's respiratory status:
Acute respiratory failure - please indicate type
Hypoxia
Other
Additional information for Respiratory Failure:
Recognized criteria for Respiratory Failure (Source: [employer] Hospitalist Mar 2013)
ABGs: (1 or more) Symptoms Please indicate type
1. pO2 <60 or RA SPO2 <91% on RA 1. Tachypnea, SOB, dyspnea Hypoxic
2. pCO2 50 and pH <7.35 2. Use of accessory muscles Hypercapnic
3. pO2 decrease of pCO2 increase by 3. Pallor or cyanosis Hypoxic and Hypercapnic
10 mmHg from baseline if known 4. Anxiety or restlessness Unable to determine
5. Unable to speak in full sentences
Supplemental O2 of > 40% (5LPM) Intubation is not required
Use of terms such as suspected, likely, concern for, or probable (associated with a specific diagnosis that is being evaluated, monitored, or treated as if it exists) are acceptable and can be coded in the inpatient setting, when documented at the
time of discharge.
Thank you,
Alannah Dye RN, BSN
CDI Specialist
tiger text
Please use your independent medical judgment in providing your response.
[2023-11-30] MEDS: STERILE WATER FOR INJECTION 10 ML IV (11:18)
[2023-11-30] MEDS: ROCEPHIN 1000 MG IV (11:19)
[2023-11-30 11:29] VITALS: BP 138/72
[2023-11-30 11:34] LABS: Glucose - Point of Care 116 mg/dl (70-99)
[2023-11-30 14:22] VITALS: BP 135/70; PULSE 106; O2SAT 97
--- NOTE | 2023-11-30 15:25 | W.DCSUMMARY ---
Discharge Summary
Discharge Data
Date of Admission: 11/28/23
Date of Discharge: 11/30/23
-
Pending Results: No
Hospital Course
Principal Diagnosis:
Severe Sepsis on admission with Proteus Bacteremia
Elevated troponin may be due to non-ischemic myocardial injury due to sepsis versus non-ST elevation myocardial infarction (NSTEMI)
Non-sustained asymptomatic ventricular tachycardia
Acute stroke of the right occipital lobe and right temporal occipital stroke
Chronic Diagnoses:�
Aco-bwtjufu-vkpncjkjv diabetes
Hyperlipidemia
Benign prostate hypertrophy on Flomax
Consultations:�
Neurology
Cardiology
Procedures:�
None
Clinical course:�
This is a 88-year-old male, with past medical history as stated above, who presented with confusion/acute metabolic encephalopathy.
Problem 1:
Severe Sepsis on admission with Proteus Bacteremia.
The patient initially received IV Zosyn, and this was changed to ceftriaxone.
His repeat blood culture was negative.
His urine culture grew 100,000 CFU/ML Mixed delores present, Probable contamination.
He was discharged with oral Keflex to complete total 14-day course.
Problem 2:
Elevated troponin may be due to non-ischemic myocardial injury from sepsis versus NSTEMI.
This was associated with non-sustained asymptomatic ventricular tachycardia.
The patient's troponin peaked at 5.5.
His echo noted a reduced EF at 30 to 35%, and stage I diastolic dysfunction.
His Toprol was increased from 25 to 50 mg at bedtime per cardiology.
Low-dose Aldactone 12.5 mg daily was added this admission (he has allergy to lisinopril with throat swelling).
He can continue with aspirin and Plavix for 1 year per cardiology (patient and family preferred medical therapy, due to concern of cardiac catheterization with new stroke).
Problem 3:
acute stroke of the right occipital lobe and right temporal occipital lobe.
His MRI brain showed possible right occipital lobe and right temporal occipital stroke.
His MRA brain was normal.
His carotid US was unrevealing: noted mild amount of mixed calcified noncalcified plaque within BOTH carotid bulbs and proximal internal carotid arteries causing less than 50% luminal narrowing bilaterally.
He can continue with dual antiplatelet therapy as stated above (for stroke and for elevated troponin).
As part of the stroke workup, LDL was checked, which was at 47; the patient can continue with his prior to admission Lipitor at 20 mg daily.
As for the rest of his medical problems, they were stable during his hospital stay.
Discharge Plan
-
Patient Disposition: Acute Rehab Facility
Discharge Diagnosis/Procedures: Severe Sepsis with Proteus Bacteremia; acute stroke in right occipital lobe and right temporal occipital stroke; Non-sustained asymptomatic ventricular tachycardia
Condition: Fair
Diet: As tolerated, Low Fat, Low Cholesterol and 2 Gram Sodium
Activity: As tolerated
Driving Restrictions: No driving
Referrals:
Robson Herbert MD [Family Provider] - in less than 1 week
Minh Merritt PA-C [Non-Admitting Privileges] - 12/19/23 2:45 pm (You have a follow up visit with Dr. Fernandes's Minh KELLY, at the [place] office. Please call with questions. )
Additional Discharge Medication Instructions: No Toprol was increased from 25 mg to 50 mg
We have added Aldactone 12.5 mg daily
Continue aspirin and Plavix for at least 1 year per cardiology due to elevated troponin and non-sustained ventricular tachycardia
Continue Keflex for 11 more days for your Proteus bacteremia
Prescriptions:
New
spironolactone 25 mg Tablet
12.5 mg PO DAILY Qty: 30 0RF
metoprolol succinate 50 mg Tablet Extended Release 24 Hr
50 mg PO HS Qty: 30 0RF
clopidogrel 75 mg Tablet
75 mg PO DAILY Qty: 30 0RF
cephalexin 500 mg capsule
500 mg PO BID 11 Days Qty: 22 0RF
Continued
atorvastatin 20 mg Tablet
20 mg PO DAILY
tamsulosin 0.4 mg Capsule
0.4 mg PO HS
aspirin 81 mg Tablet
81 mg PO DAILY
empagliflozin 10 mg Tablet
10 mg PO DAILY
Co-Enzyme Q-10
100 mg PO DAILY
Discontinued
metoprolol succinate 25 mg Tablet Extended Release 24 Hr
25 mg PO HS
Discharge Orders:
Discharge Patient (As Directed); Ordered 11/30/23
Ordered By: Cony Car
Discharge Date and Time
Print Language: LAO
[2023-11-30 15:30] VITALS: BP 130/63
[2023-11-30 16:24] LABS: Glucose - Point of Care 122 mg/dl (70-99)
== END 2023-11-30 17:58 | DRG 871 ==
LOC: 4 WEST ACU 11:05
PROVIDERS: Internal Medicine; Nurse Practitioner Family; Nurse Practitioner Primary Care; Physician Assistant Medical; ADMITTING PHYSICIAN Internal Medicine; ATTENDING PHYSICIAN Internal Medicine; CONSULT PHYSICIAN Internal Medicine Cardiovascular Disease; CONSULT PHYSICIAN Internal Medicine Critical Care Medicine; CONSULT PHYSICIAN Internal Medicine Infectious Disease; CONSULT PHYSICIAN Psychiatry & Neurology Neurology; EMERGENCY PHYSICIAN Emergency Medicine; FAMILY PHYSICIAN Internal Medicine
DX: A41.59 Other Gram-negative sepsis (principal); G93.41 Metabolic encephalopathy; I21.4 Non-ST elevation (NSTEMI) myocardial infarction; I63.9 Cerebral infarction, unspecified; I47.20 Ventricular tachycardia, unspecified; R65.20 Severe sepsis without septic shock; B96.4 Proteus (mirabilis) (morganii) as the cause of diseases classified elsewhere; E11.9 Type 2 diabetes mellitus without complications; N40.0 Benign prostatic hyperplasia without lower urinary tract symptoms; Z79.84 Long term (current) use of oral hypoglycemic drugs
CPT/HCPCS: 70450; 70544; 70553; 71045; 80048; 80053; 80061; 81003; 81015; 82550; 82805; 82962; 83036; 83605; 83735; 83880; 84145; 84443; 84484; 85025; 85027; 85610; 85730; 87040; 87086; 87088; 87149; 87186; 87205; 87811; 93005; 93306; 93880; 95816; 96361; 96365; 96366; 96367; 97116; 97129; 97163; 97167; 97530; 97535; 99291; A9575; Q9950

== ENCOUNTER 2024-07-10 08:42 | Inpatient (IN) | payer OTHER, SELFPAY ==
[2024-07-08] VITALS (11 sets, daily range): BP systolic 117–162; BP diastolic 56–93
--- NOTE | 2024-07-08 07:34 | ED.GENMED ---
History of Present Illness
<Lisa Dobbins PA-C - Last Filed: 07/08/24 10:02>
General
Chief Complaint: Fall
Source: patient and family
Exam Limitations: clinical condition
Time Seen by Provider: 07/08/24 07:30
Nursing documentation reviewed up to this point in time: agreed with
History of Present Illness
History of Present Illness:
89 y/o M from home via EMS
History of hyperlipidemia, diabetes, prior CVA on Plavix
doesn't know why he is here
i spoke with EMS and daughter whom he lives with
she said he got up per usual, walked down the stairs with her and walked into the bathroom per usual. He left his walker outside which he normally does. She says she does usually make sure that his brief is pulled up all the way so she was making
her way back to the bathroom when he was coming out and she did not physically see him but heard a thump onto the ground. When she got to him he was breathing with his eyes open but was a little shaky and not really responsive. He slowly came to.
They called EMS. For them he was a little hypoxic around 90% so they put him on 2 L. Patient's Accu-Chek was normal. He had other stable vital signs. He apparently recalled the incident to EMS but for me cannot recall what happened. He does
remember being in the bathroom but then did not know how he ended up here. Patient says he was just hospitalized here recently for a heart attack. The last time he has been here was November. During that hospitalization the patient initially
presented with a fever and confusion. While in the ER he became unresponsive, tachycardic in the 130s and was shaking and foaming at the mouth. It was question whether the patient had a seizure. His EEG was abnormal but did not show any obvious
epileptiform activity. His MRI of the brain showed a possible right occipital lobe and right temporal lobe stroke. He went to [facility] and then was eventually transitioned home. He is not on any antiepileptic medication. Patient does have a
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 Fernandes. He on echocardiogram in November 2023 had an EF of 30% and mild aortic stenosis.
He denies any pain in his head, chest, back, belly, hips, neck
No recent illness reported by family
Past History
<Lisa Dobbins PA-C - Last Filed: 07/08/24 10:02>
Past History
ED Past Medical History: CVA, HTN and Hypercholesterolemia
ED Past Surgical History: Appendectomy and Other (Hernia repair)
Social History
Tobacco: Non-smoker
Alcohol: None
Drug: None
Personal:
Living: with family
Review of Systems
<Lisa Dobbins PA-C - Last Filed: 07/08/24 10:02>
Review of Systems
Allergies reviewed?: Yes
All Other Systems: Not applicable
Phy Exam
<Lisa Dobbins PA-C - Last Filed: 07/08/24 10:02>
Physical Exam
Physical Exam:
GENERAL: Alert , in no apparent distress patient is awake and alert, has no memory of the incident
HEAD: NCAT no tenderness or lumps
NECK: no midline tenderness, active ROM intact, no paraspinal muscle tenderness;
EYE: pupils equal and reactive, EOMs intact.
ENT: o/p clr, mmm. no hemotympanum
CARDIAC: Regular rate and rhythm, systolic murmur heard 2 out of 6 no edema
LUNGS: Clear breath sounds bilaterally, no acute respiratory distress, no wheezes/rales/rhonchi
ABDOMEN: Soft, without focal tenderness, no r/g, no cvat
NEUROLOGICAL: Alert and oriented x 2, no focal neuro deficits, CN intact, 5/5 strength, sensation intact moving all extremities, equal strength, slight tremor
SKIN: Warm and dry,
MUSCULOSKELETAL: No edema, well perfused.
PSYCH: Normal and appropriate interaction.
Course
<Lisa Dobbins PA-C - Last Filed: 07/08/24 10:02>
Orders/Labs/Results
Orders:
Orders
07/08/24 07:31
Electrocardiogram (*1) Stat
Reason for Study: Other
Other Reason for Exam: neuro symptoms
CT Head W/o Iv Contrast Urgent
Comment:
Reason For Exam: near syncope
Cardiac Monitoring- Treatment ONCE
EKG- Treatment ONCE
Straight cath- Treatment ONCE
07/08/24 07:42
COVID-19 Antigen Urgent
Source: Nasal Swab
Urinalysis Reflex To Culture Urgent
Date Specimen was Collected: 07/08/24
Time Specimen was Collected: 07:41
Urine Microscopic Reflex Cult Urgent
Influenza A+B Rapid Molecular Urgent
TIFFANY Source: Nasal Swab
Specimen Description:
Urine Culture Urgent
TIFFANY Source: U
Specimen Description:
Date Specimen was Collected: 07/08/24
Time Specimen was Collected: 07:41
07/08/24 07:43
Complete Blood Count/With Diff Urgent
Comprehensive Metabolic Panel Urgent
D-Dimer Urgent
Troponin I Urgent
07/08/24 08:22
CT Chest PE Study Urgent
Comment:
Reason For Exam: hypoxia, syncope, +dimer
07/08/24 08:55
CefTRIAXone [Rocephin] 2,000 mg IV NOW STA
07/08/24 09:00
Sterile Water [Sterile Water For Injection] 20 ml .ROUTE .STK-MED
07/08/24 Lunch
Cholesterol Lowering
At Your Request: Full Participation
Does patient need a safe tray?: No
Cholesterol Lowering: Sodium, 2 Gram
07/08/24 11:30
Lorazepam [Ativan] 1 mg IV NOW STA
07/08/24 11:32
Lorazepam [Ativan] 2 mg .ROUTE .STK-MED ONE
07/08/24 11:37
Admit/Transfer Patient As Directed
Co-Sign Provider:
Level of Care: Observation services
Assign to:: Telemetry
Physician / Group: Dr. Lieberman
Diagnosis: Syncope
Reason for Telemetry: Syncope
Date to Stop Telemetry: 07/10/24
Time to Stop Telemetry: 11:00
PRN Pain Medication Management As Directed
May give lesser potent ordered pain med per pt: Yes
preference::
Protocol:: Medication orders for pain may be administered in a
manner that supports deferring to patient preference
when the pt is:
- Requesting an ordered lesser potent pain medication.
Least to most potent pain medications are defined
as: acetaminophen < NSAID < tramadol < opioids
(morphine, oxycodone, hydromorphone).
- Requesting a lesser dose of the same medication IF
ORDERED.
- Requesting a less intrusive route of administration
if both routes are prescribed by the provider (PO <
IV).
07/08/24 11:39
Code Status As Directed
Resuscitation Status: Do not resuscitate
Reached after discussion with pt or family/Healthcare POA: Yes
DNR Bracelet Application ONCE
07/08/24 11:41
Orthostatic Vital Signs As Directed
Orthostatic VS Frequency: BID
07/08/24 11:45
Precautions As Directed
Type of Precautions: Seizure
07/08/24 11:46
NEUROLOGY CONSULT Routine
Consulting Provider: Jama John
Was physician already notified: Yes
Reason for consult: Seizure eval
07/08/24 12:37
Lorazepam [Ativan] 1 mg IV Q6HPRN PRN
07/08/24 13:54
Atorvastatin [Lipitor] 20 mg PO DAILY
Bisacodyl [Dulcolax] 10 mg RECTAL [id number] PRN
Clopidogrel Bisulfate [Plavix] 75 mg PO DAILY
Docusate W/Senna [Senokot-S] 1 tablet PO BIDPRN PRN
Ipratropium/Albuterol Sulfate [Duoneb] 3 ml INH R Q4HPRN PRN
Pantoprazole [Protonix] 40 mg PO DAILY
Polyethylene Glycol Powder [Miralax] 17 grams PO DAILYPRN PRN
empagliflozin 10 mg PO DAILY
07/08/24 13:54
Activity As Directed
Activity Level: Out of Bed-Early Mobility
Vital Signs As Directed
Frequency: Per unit guidelines
DX Deep Vein Thrombosis Video Routine
07/08/24 14:00
Aspirin Low Dose EC [Aspir Low (Enteric Coated)] 81 mg PO DAILY
Spironolactone [Aldactone] 12.5 mg PO DAILY
07/08/24 18:00
Enoxaparin Sodium [Lovenox] 40 mg SC QPM
07/08/24 22:00
Metoprolol Xl [Toprol Xl] 25 mg PO HS
Tamsulosin [Flomax] 0.4 mg PO HS
07/09/24 06:00
Echo 2D MMode Color/Doppler IN AM
Reason for Study: syncope
Basic Metabolic Panel IN AM
Complete Blood Count/With Diff IN AM
Ot Eval And Treat IN AM
Pt Eval And Treat IN AM
Activity Level: Out of Bed-Early Mobility
07/09/24 08:00
CefTRIAXone [Rocephin] 1,000 mg IV Q24H
07/10/24 11:00
DC Protocol for Telemetry ONCE
Abnormal Lab Results
07/08/24 07/08/24 07/08/24
07:42 07:43 11:35
RBC 4.28 L 10^6/uL
(4.70-6.10)
Hgb 12.9 L g/dL
(13.0-18.0)
MCHC 32.6 L g/dL
(33.0-37.0)
MPV 10.5 H fL
(7.4-10.4)
Abs Immat Gran (auto) 0.1 H 10^3/uL
(0-0.05)
Immature Gran % 0.7 H %
(0-0.5)
Eosinophils % 6.6 H %
(0-6)
D-Dimer 4.69 H ug/mlFEU
(0.00-0.50)
BUN 25 H mg/dl
(9-20)
Glucose 141 H mg/dl
(70-99)
Ur Occult Blood Reflex 4+ A
(Negative)
Leukocyte Esterase Rfl 3+ A
(Negative)
Urine RBC 30-40 A /HPF
(0-2)
Urine WBC (Reflex) 30-40 A /HPF
(0-5)
Urine Bacteria (Reflex) Moderate A
(Negative)
Urine Glucose 4+ A
(Negative)
Urine Albumin (Reflex) 3+ A
(Neg - Trace)
POC Glucose 107 H mg/dl
(70-99)
07/08/24 07:43
07/08/24 07:43
Vital Signs
Initial and Last Documented VS:
Initial Vital Signs
Temp Pulse Resp BP Pulse Ox
37.1 C 103 16 162/75 95
07/08/24 07:28 07/08/24 07:28 07/08/24 07:28 07/08/24 07:28 07/08/24 07:28
Last Documented Vital Signs
Temp Pulse Resp BP Pulse Ox
36.8 C 101 18 159/85 96
07/08/24 14:03 07/08/24 14:03 07/08/24 14:03 07/08/24 14:03 07/08/24 14:03
<Gee Wetzel MD - Last Filed: 07/08/24 14:31>
Orders/Labs/Results
Orders:
Orders
07/08/24 07:31
Electrocardiogram (*1) Stat
Reason for Study: Other
Other Reason for Exam: neuro symptoms
CT Head W/o Iv Contrast Urgent
Comment:
Reason For Exam: near syncope
Cardiac Monitoring- Treatment ONCE
EKG- Treatment ONCE
Straight cath- Treatment ONCE
07/08/24 07:42
COVID-19 Antigen Urgent
Source: Nasal Swab
Urinalysis Reflex To Culture Urgent
Date Specimen was Collected: 07/08/24
Time Specimen was Collected: 07:41
Urine Microscopic Reflex Cult Urgent
Influenza A+B Rapid Molecular Urgent
TIFFANY Source: Nasal Swab
Specimen Description:
Urine Culture Urgent
TIFFANY Source: U
Specimen Description:
Date Specimen was Collected: 07/08/24
Time Specimen was Collected: 07:41
07/08/24 07:43
Complete Blood Count/With Diff Urgent
Comprehensive Metabolic Panel Urgent
D-Dimer Urgent
Troponin I Urgent
07/08/24 08:22
CT Chest PE Study Urgent
Comment:
Reason For Exam: hypoxia, syncope, +dimer
07/08/24 08:55
CefTRIAXone [Rocephin] 2,000 mg IV NOW STA
07/08/24 09:00
Sterile Water [Sterile Water For Injection] 20 ml .ROUTE .STK-MED
07/08/24 Lunch
Cholesterol Lowering
At Your Request: Full Participation
Does patient need a safe tray?: No
Cholesterol Lowering: Sodium, 2 Gram
07/08/24 11:30
Lorazepam [Ativan] 1 mg IV NOW STA
07/08/24 11:32
Lorazepam [Ativan] 2 mg .ROUTE .STK-MED ONE
07/08/24 11:37
Admit/Transfer Patient As Directed
Co-Sign Provider:
Level of Care: Observation services
Assign to:: Telemetry
Physician / Group: Dr. Lieberman
Diagnosis: Syncope
Reason for Telemetry: Syncope
Date to Stop Telemetry: 07/10/24
Time to Stop Telemetry: 11:00
PRN Pain Medication Management As Directed
May give lesser potent ordered pain med per pt: Yes
preference::
Protocol:: Medication orders for pain may be administered in a
manner that supports deferring to patient preference
when the pt is:
- Requesting an ordered lesser potent pain medication.
Least to most potent pain medications are defined
as: acetaminophen < NSAID < tramadol < opioids
(morphine, oxycodone, hydromorphone).
- Requesting a lesser dose of the same medication IF
ORDERED.
- Requesting a less intrusive route of administration
if both routes are prescribed by the provider (PO <
IV).
07/08/24 11:39
Code Status As Directed
Resuscitation Status: Do not resuscitate
Reached after discussion with pt or family/Healthcare POA: Yes
DNR Bracelet Application ONCE
07/08/24 11:41
Orthostatic Vital Signs As Directed
Orthostatic VS Frequency: BID
07/08/24 11:45
Precautions As Directed
Type of Precautions: Seizure
07/08/24 11:46
NEUROLOGY CONSULT Routine
Consulting Provider: Jama John
Was physician already notified: Yes
Reason for consult: Seizure eval
07/08/24 12:37
Lorazepam [Ativan] 1 mg IV Q6HPRN PRN
07/08/24 13:54
Atorvastatin [Lipitor] 20 mg PO DAILY
Bisacodyl [Dulcolax] 10 mg RECTAL [id number] PRN
Clopidogrel Bisulfate [Plavix] 75 mg PO DAILY
Docusate W/Senna [Senokot-S] 1 tablet PO BIDPRN PRN
Ipratropium/Albuterol Sulfate [Duoneb] 3 ml INH R Q4HPRN PRN
Pantoprazole [Protonix] 40 mg PO DAILY
Polyethylene Glycol Powder [Miralax] 17 grams PO DAILYPRN PRN
empagliflozin 10 mg PO DAILY
07/08/24 13:54
Activity As Directed
Activity Level: Out of Bed-Early Mobility
Vital Signs As Directed
Frequency: Per unit guidelines
DX Deep Vein Thrombosis Video Routine
07/08/24 14:00
Aspirin Low Dose EC [Aspir Low (Enteric Coated)] 81 mg PO DAILY
Spironolactone [Aldactone] 12.5 mg PO DAILY
07/08/24 18:00
Enoxaparin Sodium [Lovenox] 40 mg SC QPM
07/08/24 22:00
Metoprolol Xl [Toprol Xl] 25 mg PO HS
Tamsulosin [Flomax] 0.4 mg PO HS
07/09/24 06:00
Echo 2D MMode Color/Doppler IN AM
Reason for Study: syncope
Basic Metabolic Panel IN AM
Complete Blood Count/With Diff IN AM
Ot Eval And Treat IN AM
Pt Eval And Treat IN AM
Activity Level: Out of Bed-Early Mobility
07/09/24 08:00
CefTRIAXone [Rocephin] 1,000 mg IV Q24H
07/10/24 11:00
DC Protocol for Telemetry ONCE
Abnormal Lab Results
07/08/24 07/08/24 07/08/24
07:42 07:43 11:35
RBC 4.28 L 10^6/uL
(4.70-6.10)
Hgb 12.9 L g/dL
(13.0-18.0)
MCHC 32.6 L g/dL
(33.0-37.0)
MPV 10.5 H fL
(7.4-10.4)
Abs Immat Gran (auto) 0.1 H 10^3/uL
(0-0.05)
Immature Gran % 0.7 H %
(0-0.5)
Eosinophils % 6.6 H %
(0-6)
D-Dimer 4.69 H ug/mlFEU
(0.00-0.50)
BUN 25 H mg/dl
(9-20)
Glucose 141 H mg/dl
(70-99)
Ur Occult Blood Reflex 4+ A
(Negative)
Leukocyte Esterase Rfl 3+ A
(Negative)
Urine RBC 30-40 A /HPF
(0-2)
Urine WBC (Reflex) 30-40 A /HPF
(0-5)
Urine Bacteria (Reflex) Moderate A
(Negative)
Urine Glucose 4+ A
(Negative)
Urine Albumin (Reflex) 3+ A
(Neg - Trace)
POC Glucose 107 H mg/dl
(70-99)
07/08/24 07:43
07/08/24 07:43
Vital Signs
Initial and Last Documented VS:
Initial Vital Signs
Temp Pulse Resp BP Pulse Ox
37.1 C 103 16 162/75 95
07/08/24 07:28 07/08/24 07:28 07/08/24 07:28 07/08/24 07:28 07/08/24 07:28
Last Documented Vital Signs
Temp Pulse Resp BP Pulse Ox
36.8 C 101 18 159/85 96
07/08/24 14:03 07/08/24 14:03 07/08/24 14:03 07/08/24 14:03 07/08/24 14:03
<Lisa Dobbins PA-C - Last Filed: 07/08/24 10:02>
MDM/Problems Addressed
Differential Diagnosis Includes:
syncope, near syncope, seizure, uti, covid, flu, dehydration
MDM/Problems Addressed:
89 y/o M h/o CVA, htn, hld, DM
walked out of bathroom and likely passed out; doesn't recall what happened; daughter got to him, he was not really responsive but breathing
pulse ox was a little low for ems other vitals fine; awake and alert here, amnesia to event but neuro intact
ct head neg
UA +
d dimer elevated but PE neg
had maybe a brief run of svt earlier on monitor, a few seconds;
systolic murmur on exam and h/o mild previous echo 11/2023
admit iv abx, tele monitor;
<Lisa Dobbins PA-C - Last Filed: 07/08/24 10:02>
*Critical Care Note
Total Time (30-74mins, 75-104mins- exclusive of procedures): Not Applicable
ED Attending Note
<Lisa Dobbins PA-C - Last Filed: 07/08/24 10:02>
-
Portions of this chart may have been created with voice recognition software.� Occasional wrong word or��sound alike� substitutions may have occurred due to the inherent limitations of voice recognition software.
<Gee Wetzel MD - Last Filed: 07/08/24 14:31>
ED Attending Note
Patient seen and examined by attending physician: Yes
ED Attending Note:
I have seen and evaluated the patient with a [id number] encounter. I have spoken to the advance practicer provider and involved in the medical history, the physical exam, medical decision making.
Evaluation and management service: agree unless noted differently below.
Results interpretation: agree unless noted differently below.
Focused HPI: 89-year-old male with history as documented presents to the ER with family for evaluation after syncope versus seizure. Patient had a fall while walking to the bathroom does not recall the incident although he has a history of some
mild dementia. His daughter apparently saw the fall said he did have some shaking activity but did not have any postictal period/confusion. No apparent injuries from fall. No complaints here.
Physical exam: Awake alert no distress. Hypertensive, mild tachycardia. Rest of vitals normal. Head is atraumatic. No focal neurologic deficits. No cardiac rubs gallops or murmurs. Lungs clear to auscultation.
Medical Decision Makin-year-old male presents after fall�syncope versus seizure. Labs were essentially unremarkable. EKG sinus rhythm. UA concerning for infection. Treated with antibiotics. CT head negative. CTA chest negative. Admit for
monitoring and further assessment.
Prior to admission patient did have a witnessed tonic-clonic seizure given Ativan. LETICIA updated hospitalist.
Discharge Plan
Departure
Patient Disposition: Admit
Date of Disposition: 07/08/24
Time of Disposition: 09:52
Admit to: Telemetry
Presentation/result/management discussed w/ accepting MD/DO: Hospitalist
Condition: Fair
Covid-19: Not Applicable
Discharge Problem:
Syncope, UTI (urinary tract infection)
Interventions
Interventions:
*Risk Screen - Suicide Last Done: 07/08/24 07:31
*General Assessment Last Done: 07/08/24 07:31
*Neglect/Abuse Screening Last Done: 07/08/24 07:31
ED- Fall Risk Assessment Last Done: 07/08/24 07:48
*ED COVID-19 Vaccine History Last Done: 07/08/24 07:31
*Nursing Disposition Last Done: 07/08/24 12:57
ED-Musculoskeletal Assessment Last Done: 07/08/24 07:31
ED- Neurological Assessment Last Done: 07/08/24 07:31
ED-Skin Assessment Last Done: 07/08/24 07:31
Discharge Date and Time
Discharge Date/Time: 07/08/24 13:51
[2024-07-08 07:59] LABS: % Basophils 0.8 % (0-2); % Eosinophils 6.6 % (0-6); % Immature Granulocytes 0.7 % (0-0.5); % Lymphocytes 25.1 % (20.5-51.1); % Monocytes 7.4 % (1.7-9.3); % Neutrophils 59.4 % (42.2-75.2); Absolute Basophils 0.1 10^3/uL (0-0.2); Absolute Eosinophils 0.5 10^3/uL (0-0.7); Absolute Immature Granulocytes 0.1 10^3/uL (0-0.05); Absolute Lymphocytes 1.8 10^3/uL (1.2-3.4); Absolute Monocytes 0.5 10^3/uL (0.1-0.6); Absolute Neutrophils 4.3 10^3/uL (1.4-6.5); Hematocrit 39.6 % (39.0-52.0); Hemoglobin 12.9 g/dL (13.0-18.0); Mean Corp Hgb Conc. 32.6 g/dL (33.0-37.0); Mean Corpuscular Hgb 30.1 pg (27.0-31.0); Mean Corpuscular Volume 92.5 fL (80.0-94.0); Mean Platelet Volume 10.5 fL (7.4-10.4); Nucleated Red Blood Cells % 0 % (-); Platelet Count 168 10^3/uL (130-400); Red Blood Cell Count 4.28 10^6/uL (4.70-6.10); Red Cell Dist. Width 14.3 % (11.5-14.5); White Blood Cell Count 7.3 10^3/uL (4.8-10.8)
[2024-07-08 08:06] LABS: Urine Albumin 3+ (Neg - Trace); Urine Bilirubin Negative (Negative); Urine Character Cloudy (Clear); Urine Color Yellow; Urine Glucose 4+ (Negative); Urine Ketone Negative (Negative); Urine Leukocyte 3+ (Negative); Urine Nitrite Negative (Negative); Urine Occult Blood 4+ (Negative); Urine Urobilinogen Negative (Neg - 1+)
[2024-07-08 08:10] LABS: ALT (SGPT) 12 U/L (0-50); AST (SGOT) 25 U/L (17-59); Alkaline Phosphatase 108 U/L (38-126); Blood Urea Nitrogen 25 mg/dl (9-20); Calcium 9.4 mg/dl (8.4-10.2); Carbon Dioxide 25 mmol/L (22-30); Chloride 107 mmol/L (98-107); Glucose 141 mg/dl (70-99); Potassium 4.5 mmol/L (3.5-5.1); Sodium 140 mmol/L (135-145); Total Bilirubin 0.6 mg/dl (0.2-1.3); Total Protein 7.1 g/dl (6.3-8.2); eGFR 52.51
[2024-07-08 08:12] LABS: COVID-19 Antigen Negative (Negative)
[2024-07-08 08:17] LABS: D-Dimer 4.69 ug/mlFEU (0.00-0.50)
[2024-07-08 08:20] LABS: Troponin I < 0.012 ng/ml
[2024-07-08 08:29] LABS: Urine Red Blood Cell 30-40 /HPF (0-2); Urine Squamous Cell 0-2 /LPF (Few)
[2024-07-08 08:30] LABS: Urine Bacteria Moderate (Negative); Urine White Cell 30-40 /HPF (0-5)
[2024-07-08] MEDS: ROCEPHIN 2000 MG IV (09:04)
[2024-07-08 11:35] LABS: Glucose - Point of Care 107 mg/dl (70-99)
[2024-07-08] MEDS: ATIVAN 1 MG IV (11:40)
--- NOTE | 2024-07-08 11:47 | HPS.HSE ---
Addendum entered and electronically signed by Jerry Lieberman MD 07/08/24 14:27:
I will hold the SGTL inhibitor in the setting of possible recurrent UTIs.
Original Note:
Family Physician
-
Family Physician: Robson Herbert
Chief Complaint
-
Syncope
History of Present Illness
Patient 89 years old male with past medical history of hypertension, hyperlipidemia, CHF, BPH, presented to the hospital with a possible syncope or altered mental status event. Patient went to the bathroom and when he came back out he passed out
and does not remember any of the details. Family fills in the information. Daughter heard a thump and came to help him and was described as unresponsive and having some confusion and mild shakiness. He denies any fevers or chills recently.
Denies any chest pain or shortness of breath. Denies any palpitations or diaphoresis. Denies any cough. Denies abdominal pain. He is not sure if he has some dysuria urgency or frequency. In the ED he had a witnessed episode of tonic-clonic
activity and he was given IV Ativan. He also had elevated D-dimer and CTA of the chest was negative for PE. He was started on antibiotics. He was referred to hospitalist service for further evaluation.
Medical History
Past Medical History
Past Medical History: Reports CHF, CVA, HTN, Hypercholesterolemia and NIDDM
Past Surgical History: Reports Other
Social History
Tobacco: Non-smoker
Alcohol: None
Living: With Family
Family History
Family History: Not pertinent
Allergies / Home Medications
Allergies reflects when Allergies were last updated in [employer].
Home Medications with original date entered in [employer]
Allergy/Medication List:
Allergies
Allergy/AdvReac Type Severity Reaction Status Date / Time
lisinopril Allergy Swelling Verified 11/25/23 23:26
Home Medications
Co-Enzyme Q-10 100 mg PO DAILY 11/26/23
aspirin 81 mg tablet 81 mg PO DAILY 11/26/23
atorvastatin 20 mg tablet 20 mg PO DAILY cholesterol #0 tabs 12/15/23
clopidogrel 75 mg tablet 75 mg PO DAILY CVA, CAD 30 days #30 tabs 12/15/23
empagliflozin 10 mg tablet 10 mg PO DAILY Diabetes #0 tabs 12/15/23
metoprolol succinate 25 mg tablet,extended release 24 hr 25 mg PO HS blood pressure 30 days #30 tabs 12/15/23
pantoprazole 40 mg tablet,delayed release 40 mg PO DAILY Gerd 30 days #30 tabs 12/15/23
spironolactone 25 mg tablet 12.5 mg (1/2 x 25 mg) PO DAILY Blood pressure, fluid retention 30 days #15 tabs 12/15/23
tamsulosin 0.4 mg capsule 0.4 mg PO HS BPH #0 caps 12/15/23
Review of Systems
-
A 12 point ROS was completed and negative except as noted: Yes
Physical Exam
Vital Signs
Vital Signs
Temp Pulse Resp BP Pulse Ox
98.8 F 83 17 146/71 95
07/08/24 07:28 07/08/24 11:30 07/08/24 11:30 07/08/24 11:00 07/08/24 11:30
Physical exam:
General: Well Developed, Well Nourished and No Apparent Distress
HEENT: Normocephalic, Atraumatic and Moist Mucous Membranes
Respiratory: Clear to Auscultation; Negative Wheezes, Rales or Rhonchi
Cardiac: Regular Rhythm and S1/S2
GI: Soft, Nontender and Nondistended
Musculoskeletal: No Clubbing, No Cyanosis and No Edema
Neuro: Awake, Alert and Oriented, no gross neurological deficit by the time of my evaluation
Psych: Calm and cooperative in normal judgment and insight
Physical Exam
General: Other
Laboratory Results
-
07/08/24 07:43
07/08/24 07:43
Laboratory Results
Total Bilirubin 0.6 mg/dl (0.2-1.3) 07/08/24 07:43
AST 25 U/L (17-59) 07/08/24 07:43
ALT 12 U/L (0-50) 07/08/24 07:43
Alkaline Phosphatase 108 U/L (38-126) 07/08/24 07:43
Troponin I < 0.012 ng/ml 07/08/24 07:43
Data Reviewed
-
CT Scan: Image Personally Visualized and interpreted
Lab Data: Labs Reviewed by me
Impression/Plan
-
IMPRESSION:
Patient 89 years old male with multiple comorbidities came into the hospital with altered mental status/syncope. Patient at increased risk of morbidity mortality therefore monitor in the hospital for further evaluation.
PLAN:
Altered mental status consistent with seizures:
Given Ativan in the ED
Will continue Ativan as needed
Seizure precaution
Neurology consult-discussed with neurology and holding on any AED for now given that there might be a trigger of an infection at this time (it happened back in November last year under similar circumstances but with febrile illness).
Cardiac monitoring
Check orthostatic
Update echocardiogram
PT OT eval
Concerns for UTI:
Continue IV ceftriaxone
Follow-up urine culture
Obtain blood cultures and follow-up
Hypertension:
Continue antihypertensives
Hyperlipidemia:
Continue statin
GERD:
Continue PPI
Chronic HFrEF:
Appears euvolemic
Continue diuretic
Continue GDMT with beta-blockers and MRA and SGLT inhibitor
Cardiac monitoring
CVA:
Continue antiplatelets and statin
DVT prophylaxis:
Lovenox SQ
CODE STATUS:
DNR (discussed with family at bedside)
Time spent 75 minutes
--- NOTE | 2024-07-08 13:33 | CON.NEURO ---
Neuro Assessment/Plan
Assessment
provoked seizures
Head CT imgs rev'd, right frontal encephalomalacia
MRI brain 11/2023 imgs rev'd, same
EEG background slowing
Plan
advise not starting any antiseizure drugs as no provoked seizures
would only give Ativan if seizure lasts longer than 5 minutes
Consultation
Order
Date of Consultation: 07/08/24
Requesting Provider: Jerry Lieberman
Reason for Consult: seizure
Subjective/Objective
Subjective Data
Date of Service: July 08, 2024
89 year old man presents from home. had unwitnessed fall in bathroom. daughter heard thump, got to him he was breathing, not really responsive, a little shaky. slowly came to. was a little hypoxic. did not recall incident in ED, though apparently he
was able to recall to EMS. in the ED, found to have UTI
Had first witnessed seizure in ED.
From notes, he may have had a seizure last November under similar circumstances with a febrile illness. At the time, had brain MRI and routine EEG did not show epileptiform abnormalities.
family deny any suspected seizures when he is not sick with infection
Objective Data
Vital Signs
Temp Pulse Resp BP Pulse Ox
37.1 C 127 16 146/93 95
07/08/24 07:28 07/08/24 11:45 07/08/24 12:07 07/08/24 12:00 07/08/24 11:45
Lab Results
07/08/24 07:43
07/08/24 07:43
Sodium 140 mmol/L (135-145) 07/08/24 07:43
Potassium 4.5 mmol/L (3.5-5.1) 07/08/24 07:43
BUN 25 mg/dl (9-20) H 07/08/24 07:43
Glucose 141 mg/dl (70-99) H 07/08/24 07:43
Calcium 9.4 mg/dl (8.4-10.2) 07/08/24 07:43
Patient Allergies
lisinopril Allergy (Verified 11/25/23 23:26)
Swelling
Physical Exam
-
awake, calm, pleasantly confused, slow to process
moving all extremities
Medications
-
Active Medications
Generic Name Dose Route Start Last Admin
Trade Name Freq PRN Reason Stop Dose Admin
Ceftriaxone Sodium 1,000 mg 07/09/24 08:00
Ceftriaxone 1000 Mg / 10 Ml Vial IV
Q24H BEREKET
Lorazepam 1 mg 07/08/24 12:37
Lorazepam 2 Mg/Ml Vial IV 08/05/24 12:36
Q6HPRN PRN
Seizure
Sodium Chloride 0.5 ml 07/08/24 12:40
Nss (Pf) 10 Ml Vial For Ativan 1 Mg Dose IV 08/05/24 12:39
Q6HPRN PRN
IV LORAZEPAM DILUTION
Sterile Water 10 ml 07/09/24 08:00
Sterile Water For Injection 10 Ml Vial IV 08/06/24 07:59
Q24H BEREKET
Home Medications
�Medication �Instructions �Recorded
Co-Enzyme Q-10 100 mg PO DAILY 11/26/23
aspirin 81 mg tablet 81 mg PO DAILY 11/26/23
atorvastatin 20 mg tablet 20 mg PO DAILY cholesterol #0 tabs 12/15/23
clopidogrel 75 mg tablet 75 mg PO DAILY CVA, CAD 30 days 12/15/23
#30 tabs
empagliflozin 10 mg tablet 10 mg PO DAILY Diabetes #0 tabs 12/15/23
metoprolol succinate 25 mg 25 mg PO HS blood pressure 30 days 12/15/23
tablet,extended release 24 hr #30 tabs
pantoprazole 40 mg tablet,delayed 40 mg PO DAILY Gerd 30 days #30 12/15/23
release tabs
spironolactone 25 mg tablet 12.5 mg (1/2 x 25 mg) PO DAILY 12/15/23
Blood pressure, fluid retention 30
days #15 tabs
tamsulosin 0.4 mg capsule 0.4 mg PO HS BPH #0 caps 12/15/23
[2024-07-08] MEDS: ASPIR LOW (ENTERIC COATED) 81 MG PO (14:50)
[2024-07-08] MEDS: PROTONIX 40 MG PO (14:50)
[2024-07-08] MEDS: ALDACTONE 12.5 MG PO (14:51)
[2024-07-08] MEDS: LIPITOR 20 MG PO (14:51)
[2024-07-08] MEDS: PLAVIX 75 MG PO (14:51)
[2024-07-08] MEDS: LOVENOX 40 MG SC (17:06)
[2024-07-08 17:20] LABS: Glucose - Point of Care 111 mg/dl (70-99)
[2024-07-08 21:16] LABS: Glucose - Point of Care 125 mg/dl (70-99)
[2024-07-08] MEDS: FLOMAX 0.4 MG PO (21:30)
[2024-07-08] MEDS: TOPROL XL 25 MG PO (21:30)
[2024-07-09] VITALS (7 sets, daily range): BP systolic 124–157; BP diastolic 70–94; PULSE 87; BMI 26.6
--- NOTE | 2024-07-09 04:25 | PTCARENOTE ---
Patient forgetful and confused throughout shift. Able to answer all orientation questions correctly and appropriately. Patient frequently pulling off tele monitor leads. Leads placed back on patient throughout shift. Patient forgetful, easily
redirected. Patient pulled out L hand IV. Educated patient on the importance of not pulling off tele leads or IV. Patient replied 'yes mother.' Call cedillo within reach. Plan of care ongoing.
[2024-07-09 06:03] LABS: % Basophils 0.6 % (0-2); % Eosinophils 3.3 % (0-6); % Immature Granulocytes 0.4 % (0-0.5); % Lymphocytes 19.3 % (20.5-51.1); % Monocytes 11.7 % (1.7-9.3); % Neutrophils 64.7 % (42.2-75.2); Absolute Basophils 0.1 10^3/uL (0-0.2); Absolute Eosinophils 0.3 10^3/uL (0-0.7); Absolute Lymphocytes 1.5 10^3/uL (1.2-3.4); Absolute Monocytes 0.9 10^3/uL (0.1-0.6); Absolute Neutrophils 5.1 10^3/uL (1.4-6.5); Hemoglobin 12.4 g/dL (13.0-18.0); Mean Corp Hgb Conc. 33.5 g/dL (33.0-37.0); Mean Corpuscular Hgb 30.4 pg (27.0-31.0); Mean Corpuscular Volume 90.7 fL (80.0-94.0); Mean Platelet Volume 10.4 fL (7.4-10.4); Nucleated Red Blood Cells % 0 % (-); Platelet Count 161 10^3/uL (130-400); Red Blood Cell Count 4.08 10^6/uL (4.70-6.10); Red Cell Dist. Width 14.4 % (11.5-14.5); White Blood Cell Count 7.9 10^3/uL (4.8-10.8)
[2024-07-09 07:27] LABS: Glucose - Point of Care 101 mg/dl (70-99)
[2024-07-09] MEDS: ROCEPHIN 1000 MG IV (08:23)
[2024-07-09] MEDS: PROTONIX 40 MG PO (08:24)
[2024-07-09] MEDS: STERILE WATER FOR INJECTION 10 ML IV (08:24)
[2024-07-09] MEDS: ALDACTONE 12.5 MG PO (08:25)
[2024-07-09] MEDS: PLAVIX 75 MG PO (08:25)
[2024-07-09] MEDS: ASPIR LOW (ENTERIC COATED) 81 MG PO (08:25)
[2024-07-09] MEDS: LIPITOR 20 MG PO (08:25)
[2024-07-09 08:27] LABS: Glycohemoglobin (HgbA1c) 5.7 % (4.0-5.6)
[2024-07-09 09:12] LABS: Blood Urea Nitrogen 20 mg/dl (9-20); Calcium 9.3 mg/dl (8.4-10.2); Carbon Dioxide 22 mmol/L (22-30); Chloride 105 mmol/L (98-107); Estimated Creatinine Clearance 42 ml/min; Glucose 101 mg/dl (70-99); Potassium 4.1 mmol/L (3.5-5.1); Sodium 137 mmol/L (135-145); eGFR 52.51
--- NOTE | 2024-07-09 10:07 | W.PN.HOSP.TC ---
Today's Communication/Plan
-
Echo
telemetry
cont Ceftriaxone
Assessment / Plan
Assessment / Plan
89yo M with PMHx of CAD, HLD, HFpEF, Hx of seizures came after the fall in the bathroom with LOC. Found UTI. Had also episode of seizure activity in ED> Neurologist suggested secondary seizures due to infection, no AED advised.
A/P:
#Syncope, most likely 2/2 UTI, vasovagal
Telemetry without significant arrhythmia
Ortho VS pending
Echo
Ceftriaxone pending UA
No KRYSTIAN, hold off abdominal imaging
Bcx pending
CT head without acute findings
PT/OT
Seizure precautions
Ativan PRN
#elevated ddimer
2/[address] neg for PE
US LE pending
#Provoked seizures
Neurology follows: no AED advised
#moderate hiatal hernia
no dysphagia reported
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
low carb diet
#chronic HFpEF
#BPH
cont home meds
Stop Faxiga 2/2 concern for recurrent UTI
DVT ppx lovenox
DNR/DNI
I have spent at least 59min reviewing chart, test results, communication with consultants and providing direct patient care
Anticipated Discharge: 24 - 48 hours
Subjective/Interval History
-
Date of Service: July 09, 2024
Objective Data
-
Labs:
Laboratory Results
07/09/24 07/09/24
05:26 07:29
WBC 7.9
Hgb 12.4 L
Hct 37.0 L
Plt Count 161
Sodium 137
Potassium 4.1
Chloride 105
Carbon Dioxide 22
BUN 20
Creatinine 1.3
Glucose 101 H
Calcium 9.3
Vital Signs:
Vital Signs
Temp Pulse Resp BP Pulse Ox
98.3 F 95 16 155/94 94
07/09/24 07:29 07/09/24 07:29 07/09/24 07:29 07/09/24 07:29 07/09/24 07:29
I&O
07/08/24 07/09/24 07/10/24
06:59 06:59 06:59
Intake Total 240 / 240
Balance 240 / 240
Review of Systems
-
Unable to obtain full review of systems at this time due to: Dementia
History Source: Patient
Physical Exam
-
General: No Apparent Distress
HEENT: Normocephalic
Respiratory: Clear to Auscultation
Cardiac: Regular Rhythm
GI: Soft, Nontender and Nondistended
Musculoskeletal: No Clubbing, No Cyanosis and No Edema
Neuro: Awake, Alert and Oriented
Psych: Calm and Apparent Dementia
[2024-07-09 11:56] LABS: Glucose - Point of Care 99 mg/dl (70-99)
[2024-07-09] MEDS: ELIQUIS 10 MG PO ×2 (13:22→20:50)
--- NOTE | 2024-07-09 14:30 | W.PN.UPDATE ---
Update Note
Progress Note Update
#Chronic b/l DVT
ELiquis
Discussed with daughter in details
Stop Plavix, cont ASA (due to PMHx of CAD)
[2024-07-09 16:30] LABS: Glucose - Point of Care 115 mg/dl (70-99)
--- NOTE | 2024-07-09 17:04 | CM ---
Alert awake patient who lives with his dgt Ashley Mccarty who lives in a 2 story home with 0 step to enter and 8 steps to bed and bathroom.Spoke with Ashley Mccarty dgt at bedside. Pt is assisted in all activities of daily living.He will need PT OT for dc
planning.GARCIA letter explained copy given to dgt . Copy signed on chart.
Pt DHLeilaniN jeannette /Ibarra history
Pharmacy [facility]
PCP DR Herbert
PLAN Will depend on PT OT
[2024-07-09] MEDS: FLOMAX 0.4 MG PO (20:50)
[2024-07-09] MEDS: TOPROL XL 25 MG PO (20:50)
[2024-07-09 21:58] LABS: Glucose - Point of Care 112 mg/dl (70-99)
[2024-07-09] MEDS: LOPRESSOR 5 MG IV (22:42)
[2024-07-09 23:15] LABS: Magnesium 2.1 mg/dl (1.6-2.3)
[2024-07-10] VITALS (8 sets, daily range): BP systolic 92–148; BP diastolic 46–80; PULSE 58–96; O2SAT 94–95; BMI 26.6
--- NOTE | 2024-07-10 03:36 | PTCARENOTE ---
Tele monitor alarmed showing HR 150's. Immediately entered room, patient attempting to get oob-legs over side rail. Patient assisted back to bed. Patient believing that he is 'in a warehouse.' Redirection unsuccessful. VS obtained. EKG obtained.
CHARLI Jerez notified. New order rec'd for PRN IV Lopressor. See MAR for administration. HR back to sustaining 70s-90s in NSR with PVC's. Patient remains very confused. Frequently trying to get oob to 'lock the door,' or asking to 'move the
truck out of the room.' Bed alarm intact. Plan of care ongoing.
[2024-07-10 07:22] LABS: Hematocrit 41.7 % (39.0-52.0); Hemoglobin 13.9 g/dL (13.0-18.0); Mean Corp Hgb Conc. 33.3 g/dL (33.0-37.0); Mean Corpuscular Hgb 30.7 pg (27.0-31.0); Mean Corpuscular Volume 92.1 fL (80.0-94.0); Mean Platelet Volume 9.7 fL (7.4-10.4); Platelet Count 161 10^3/uL (130-400); Red Blood Cell Count 4.53 10^6/uL (4.70-6.10); Red Cell Dist. Width 14.3 % (11.5-14.5); White Blood Cell Count 7.2 10^3/uL (4.8-10.8)
[2024-07-10 07:43] LABS: Glucose - Point of Care 104 mg/dl (70-99)
[2024-07-10 07:45] LABS: ALT (SGPT) 14 U/L (0-50); AST (SGOT) 45 U/L (17-59); Albumin 3.9 g/dl (3.5-5.0); Alkaline Phosphatase 101 U/L (38-126); Blood Urea Nitrogen 21 mg/dl (9-20); Calcium 9.3 mg/dl (8.4-10.2); Carbon Dioxide 23 mmol/L (22-30); Chloride 105 mmol/L (98-107); Estimated Creatinine Clearance 42 ml/min; Glucose 114 mg/dl (70-99); Magnesium 2.1 mg/dl (1.6-2.3); Potassium 4.8 mmol/L (3.5-5.1); Sodium 138 mmol/L (135-145); Total Protein 7.1 g/dl (6.3-8.2); eGFR 52.51
[2024-07-10] MEDS: ROCEPHIN 1000 MG IV (08:22)
[2024-07-10] MEDS: ELIQUIS 10 MG PO ×2 (08:22→21:05)
[2024-07-10] MEDS: ALDACTONE 12.5 MG PO (08:22)
[2024-07-10] MEDS: ASPIR LOW (ENTERIC COATED) 81 MG PO (08:22)
[2024-07-10] MEDS: STERILE WATER FOR INJECTION 10 ML IV (08:22)
[2024-07-10] MEDS: PROTONIX 40 MG PO (08:23)
[2024-07-10] MEDS: LIPITOR 20 MG PO (08:23)
[2024-07-10 11:47] LABS: Glucose - Point of Care 142 mg/dl (70-99)
--- NOTE | 2024-07-10 11:52 | W.PN.HOSP.TC ---
Addendum entered and electronically signed by Dario Harrison MD 07/10/24 12:42:
Patient had known NSVT and was recommended Toprol 50mg daily in November 2023, now was taking 25mg only. Possibly not sufficient for SVT control
Original Note:
Today's Communication/Plan
-
Increase toprol
CM for rehab
Assessment / Plan
Assessment / Plan
89yo M with PMHx of CAD, HLD, HFpEF, Hx of seizures came after the fall in the bathroom with LOC. Found UTI. Had also episode of seizure activity in ED> Neurologist suggested secondary seizures due to infection, no AED advised. Found b/l LE chronic
DVT. single episode of overnight SVT - metoprolol increased. Echo showed mildly improved EF 35-40% and minimally progressed to moderate. Reasonable for outpatient follow up with established special events coordinator. Medically stable for d/c as Ucx resulted
with cephalosporin-sensitive proteus mirabilis. PT/OT recommended rehab
A/P:
#Syncope, most likely 2/2 UTI, vasovagal
Telemetry without significant arrhythmia
Ortho VS pending
Echo
Ceftriaxone pending UA
No KRYSTIAN, hold off abdominal imaging
Bcx pending
CT head without acute findings
PT/OT
Seizure precautions
Ativan PRN
#Chronic b/l LE DVT
most likely 2/2 chronic poor ambulatory function
eliquis started
#Provoked seizures
Neurology follows: no AED advised
#moderate hiatal hernia
no dysphagia reported
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
low carb diet
#chronic HFrEF
#BPH
cont home meds
Stop Faxiga 2/2 concern for recurrent UTI
DVT ppx lovenox
DNR/DNI
I have spent at least 39min reviewing chart, test results, communication with consultants and providing direct patient care
Anticipated Discharge: Within 24 hours
Subjective/Interval History
-
Date of Service: July 10, 2024
Objective Data
-
Labs:
Laboratory Results
07/10/24
07:11
WBC 7.2
Hgb 13.9
Hct 41.7
Plt Count 161
Sodium 138
Potassium 4.8
Chloride 105
Carbon Dioxide 23
BUN 21 H
Creatinine 1.3
Glucose 114 H
Calcium 9.3
Total Bilirubin 1.0
AST 45
ALT 14
Alkaline Phosphatase 101
Vital Signs:
Vital Signs
Temp Pulse Resp BP Pulse Ox
98.0 F 88 18 101/52 95
07/10/24 10:52 07/10/24 10:52 07/10/24 10:52 07/10/24 10:52 07/10/24 10:52
I&O
07/09/24 07/10/24 07/11/24
06:59 06:59 06:59
Intake Total 240 / 240 480 / 480
Balance 240 / 240 480 / 480
Review of Systems
-
History Source: Patient
All other systems: Reviewed and negative
Physical Exam
-
General: No Apparent Distress
HEENT: Normocephalic
Respiratory: Clear to Auscultation
GI: Soft, Nontender and Nondistended
Musculoskeletal: No Clubbing, No Cyanosis and No Edema
Neuro: Awake, Alert, Oriented and AO x 3
Psych: Calm
[2024-07-10 16:30] LABS: Glucose - Point of Care 137 mg/dl (70-99)
--- NOTE | 2024-07-10 17:28 | CM ---
Pt changed to inpatient . IMM given explained to pt and dgt. IMM signed on chart.
Reviewed PT OT.
Family is not sure about SNF .
PACC Data given
PLAN Home with VN VS Snf
[2024-07-10] MEDS: FLOMAX 0.4 MG PO (21:05)
[2024-07-10] MEDS: TOPROL XL 50 MG PO (21:06)
[2024-07-10 21:54] LABS: Glucose - Point of Care 151 mg/dl (70-99)
[2024-07-11 03:00] VITALS: BP 134/67
[2024-07-11 06:00] VITALS: BMI 26.5
[2024-07-11 07:42] VITALS: BP 128/72
[2024-07-11 08:10] LABS: Glucose - Point of Care 139 mg/dl (70-99)
[2024-07-11] MEDS: ASPIR LOW (ENTERIC COATED) 81 MG PO (09:08)
[2024-07-11] MEDS: ELIQUIS 10 MG PO (09:08)
[2024-07-11] MEDS: PROTONIX 40 MG PO (09:08)
[2024-07-11] MEDS: LIPITOR 20 MG PO (09:08)
[2024-07-11] MEDS: ALDACTONE 12.5 MG PO (09:08)
[2024-07-11] MEDS: STERILE WATER FOR INJECTION 10 ML IV (09:09)
[2024-07-11] MEDS: ROCEPHIN 1000 MG IV (09:09)
--- NOTE | 2024-07-11 11:21 | W.PN.HOSP.TC ---
Today's Communication/Plan
-
dc
Assessment / Plan
Assessment / Plan
89yo M with PMHx of CAD, HLD, HFpEF, Hx of seizures came after the fall in the bathroom with LOC. Found UTI. Had also episode of seizure activity in ED> Neurologist suggested secondary seizures due to infection, no AED advised. Found b/l LE chronic
DVT. single episode of overnight SVT - metoprolol increased. Echo showed mildly improved EF 35-40% and minimally progressed to moderate. Reasonable for outpatient follow up with established silk screen printer machine. Medically stable for d/c as Ucx resulted
with cephalosporin-sensitive proteus mirabilis. PT/OT recommended rehab however patient declined. He also discussed that with his family. PSVT did not reoccur on Toprol 50mg. Medically stable for d/c. Will complete oral Abx for UTI at home
A/P:
#Syncope, most likely 2/2 UTI, vasovagal
Telemetry without significant arrhythmia
Ortho VS pending
Echo
Ceftriaxone pending UA
No KRYSTIAN, hold off abdominal imaging
Bcx pending
CT head without acute findings
PT/OT
Seizure precautions
Ativan PRN
#Chronic b/l LE DVT
most likely 2/2 chronic poor ambulatory function
eliquis started
#Provoked seizures
Neurology follows: no AED advised
#moderate hiatal hernia
no dysphagia reported
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
low carb diet
#PSVT
Patient had known NSVT and was recommended Toprol 50mg daily in November 2023, now was taking 25mg only. Possibly not sufficient for SVT control
#chronic HFrEF
#BPH
cont home meds
Stop Faxiga 2/2 concern for recurrent UTI
DVT ppx lovenox
DNR/DNI
I have spent at least 39min reviewing chart, test results, communication with consultants and providing direct patient care
Anticipated Discharge: Today
Subjective/Interval History
-
Date of Service: July 11, 2024
Objective Data
-
Vital Signs:
Vital Signs
Temp Pulse Resp BP Pulse Ox
97.8 F 84 16 128/72 97
07/11/24 07:42 07/11/24 07:42 07/11/24 07:42 07/11/24 07:42 07/11/24 07:42
I&O
07/10/24 07/11/24 07/12/24
06:59 06:59 06:59
Intake Total 480 / 480 960 / 960
Balance 480 / 480 960 / 960
Review of Systems
-
History Source: Patient
All other systems: Reviewed and negative
Physical Exam
-
General: No Apparent Distress
HEENT: Normocephalic
Respiratory: Clear to Auscultation
Cardiac: Regular Rhythm
GI: Soft, Nontender and Nondistended
Genito-urinary: No Costovertebral Tender
Musculoskeletal: No Clubbing, No Cyanosis and No Edema
Neuro: Awake, Alert, Oriented and AO x 3
Psych: Calm
--- NOTE | 2024-07-11 11:30 | W.DCSUMMARY ---
Discharge Summary
Discharge Data
Date of Admission: 07/10/24
Date of Discharge: 07/11/24
-
Pending Results: No
Hospital Course
89yo M with PMHx of CAD, HLD, HFpEF, Hx of seizures came after the fall in the bathroom with LOC. Found UTI. Had also episode of seizure activity in ED> Neurologist suggested secondary seizures due to infection, no AED advised. Found b/l LE chronic
DVT. single episode of overnight SVT - metoprolol increased. Echo showed mildly improved EF 35-40% and minimally progressed to moderate. Reasonable for outpatient follow up with established arc welder. Medically stable for d/c as Ucx resulted
with cephalosporin-sensitive proteus mirabilis. PT/OT recommended rehab however patient declined. He also discussed that with his family. PSVT did not reoccur on Toprol 50mg. Medically stable for d/c. Will complete oral Abx for UTI at home.
Discussed importance of prevention of falls and monitoring for black stool/blood in the stool with daughter over the phone upon diagnosis of b/l chronic DVT. she verbalized understanding.
I have spent at least 39min reviewing chart, test results, communication with consultants and providing direct patient care
Patient was managed for:
#Syncope, most likely 2/2 UTI, vasovagal
#Chronic b/l LE DVT
#Provoked seizures
#moderate hiatal hernia
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
#PSVT
#chronic HFrEF
#BPH
Discharge Plan
-
Patient Disposition: Home with Home Care
Discharge Diagnosis/Procedures: UTI
Diet: Diabetic, Carb Controlled
Activity: No restrictions
Driving Restrictions: No driving
Other Services: VN and PT
Activity Restrictions/Additional Instructions:
Schedule appointment with your arc welder TING for recurrent SVT
Referrals:
Robson Herbert MD [Family Provider] -
Prescriptions:
New
Eliquis DVT-PE Treat 30D Start 5 mg (74 tabs) tablets,dose pack
See Rx Instructions .ROUTE .COMPLEX Qty: 74 0RF
Rx Instructions:
take 10mg BID until 07/15/24 and switch to 5mg BID in the morning of 07/16/24
metoprolol succinate 25 mg Tablet Extended Release 24 Hr
50 mg PO HS Qty: 30 0RF
cefuroxime axetil 500 mg tablet
500 mg PO BID Qty: 14 0RF
Continued
aspirin 81 mg Tablet
81 mg PO DAILY
Co-Enzyme Q-10
100 mg PO DAILY
pantoprazole 40 mg Tablet,Delayed Release (Dr/Ec)
40 mg PO DAILY 30 Days Qty: 30 0RF
atorvastatin 20 mg Tablet
20 mg PO DAILY Qty: 0 0RF
spironolactone 25 mg Tablet
12.5 mg PO DAILY 30 Days Qty: 15 0RF
tamsulosin 0.4 mg Capsule
0.4 mg PO HS Qty: 0 0RF
Discontinued
metoprolol succinate 25 mg Tablet Extended Release 24 Hr
25 mg PO HS 30 Days Qty: 30 0RF
clopidogrel 75 mg Tablet
75 mg PO DAILY 30 Days Qty: 30 0RF
empagliflozin 10 mg Tablet
10 mg PO DAILY Qty: 0 0RF
Discharge Date and Time
Print Language: ARABIC
[2024-07-11 11:34] VITALS: BP 112/60
[2024-07-11 11:49] LABS: Glucose - Point of Care 130 mg/dl (70-99)
--- NOTE | 2024-07-11 13:42 | VNURNOTE ---
Home Health Liaison met with patient and brother at bedside to discuss [facility] nurse/therapy, visits, schedule and homebound status. Patient is agreeable and understands that visits at home will be 2-3 x per week to assess and teach medical management.
Patient is aware that [facility] will contact them for start of care in 1-2 days after discharge from .
[facility] referral completed in [facility].
--- NOTE | 2024-07-11 16:24 | CM ---
Spoke with pt dgt and sukhdev Machado Reviewed PT OT evals that recommended SNF.
Pt and brother all agreed for dc to home with [facility] .
Sukhdev Machado will transport home via car.
Mj Cavanaugh set up [facility].
PLAN Home with [facility]
== END 2024-07-11 14:17 | disposition home health service (06) | DRG 312 ==
LOC: 3 WEST ACU 08:42
PROVIDERS: Physician Assistant; ADMITTING PHYSICIAN Hospitalist; ATTENDING PHYSICIAN Internal Medicine; CONSULT PHYSICIAN Psychiatry & Neurology Clinical Neurophysiology; EMERGENCY PHYSICIAN Emergency Medicine; FAMILY PHYSICIAN Internal Medicine
DX: R55 Syncope and collapse (principal); N39.0 Urinary tract infection, site not specified; I50.22 Chronic systolic (congestive) heart failure; I47.10 Supraventricular tachycardia, unspecified; I82.413 Acute embolism and thrombosis of femoral vein, bilateral; I47.20 Ventricular tachycardia, unspecified; B96.4 Proteus (mirabilis) (morganii) as the cause of diseases classified elsewhere; I11.0 Hypertensive heart disease with heart failure; I25.10 Atherosclerotic heart disease of native coronary artery without angina pectoris; E78.00 Pure hypercholesterolemia, unspecified; K44.9 Diaphragmatic hernia without obstruction or gangrene; N40.0 Benign prostatic hyperplasia without lower urinary tract symptoms; Z66 Do not resuscitate
CPT/HCPCS: 70450; 71275; 80048; 80053; 81003; 81015; 82962; 83036; 83735; 84484; 85025; 85027; 85379; 87040; 87077; 87086; 87186; 87502; 87811; 93005; 93306; 93970; 96374; 97163; 97167; 99285; Q9967